=== PATIENT | male | born 1985 | race Hispanic/Latino ===

== ENCOUNTER 2021-01-18 16:30 | Emergency (ER) | payer SELFPAY ==
[2021-01-18 16:31] VITALS: BP 136/87; PULSE 130; RESP 24; TEMP 36.8; O2SAT 97; BMI 23.3
[2021-01-18 16:57] LABS: Absolute Lymphocyte Count 2.19 X10^3/uL (0.83-4.51); Absolute Neutrophil Count 3.6 X10^3/uL (2.0-7.7); Basophil# 0.04 X10^3/uL; Basophil% 0.6 % (0-1); Eosinophil# 0.03 X10^3/uL; Eosinophils% 0.5 % (0-5); Hemoglobin 14.7 g/dL (13.0-16.5); Lymphocyte # 2.19 X10^3/ul (0.83-4.51); Lymphocyte % 34.7 % (19-41); Mean Corp Hgb Conc 33.4 g/dL (32-36); Mean Corpuscular Hgb 29.8 pg (27.0-32.0); Mean Corpuscular Volume 89.2 fL (80-94); Monocyte# 0.41 X10^3/uL; Monocyte% 6.5 % (0-10); NRBC Flagged by Analyzer 0 % (0-5); Neutrophil # 3.58 X10^3/uL (2.7-7.7); Neutrophil % 56.7 % (47-70); Platelet Count 324 K/mm3 (150-450); RBC Distribution Width CV 12.5 % (11.6-14.6); RBC Distribution Width SD 41.1 fl (35.1-43.9); Red Blood Count 4.93 M/mm3 (4.6-6.2); White Blood Count 6.3 K/mm3 (4.4-11.0)
[2021-01-18] MEDS: Morphine 4 MG/ML Syringe IV (16:58)
[2021-01-18] MEDS: Ondansetron 4 MG/2 ML Vial IV (16:58)
[2021-01-18] MEDS: 0.9% Normal Saline 1,000 ML 1000 ML IV (16:58)
[2021-01-18] MEDS: 0.9% Normal Saline 1,000 ML 150 ML IV (17:07)
[2021-01-18 17:15] LABS: AST(SGOT) 64 U/L (15-37); Alanine Aminotransfer ALT/SGPT 138 U/L (16-61); Albumin, Serum 4.6 g/dL (3.2-5.0); Alkaline Phosphatase 127 U/L (45-117); Anion Gap 16 (5-15); BUN 8 mg/dL (7-18); BUN/Creat Ratio 5.9 RATIO (10-20); Bilirubin, Direct 0.09 mg/dL (0.00-0.30); Calcium,Total 9.1 mg/dL (8.5-10.1); Chloride 105 mmol/L (98-107); Creatinine, Serum 1.35 mg/dL (0.70-1.30); EST Glomerular Filtration Rate 63 mL/min (>60); Est Glom Filt Rate - Afr Amer 76 mL/min (>60); Estimated Creatinine Clearance 65.17 ml/min; Globulin 4.2 g/dL (2.2-4.2); Glucose 136 mg/dL (74-106); Lipase 83 U/L (73-393); Protein, Total 8.8 g/dL (6.4-8.2); Sodium Level 140 mmol/L (136-145)
[2021-01-18] MEDS: Potassium Chloride Oral Tablet 20 MEQ 40 MEQ PO (18:24)
--- NOTE | 2021-01-18 18:54 | EDS_ITS ---
HPI History of Present Illness Chief Complaint: Nausea/Vomiting Informant: patient and spouse/S.O. Onset/Context/Timing Onset: Today Current Severity: Moderate Maximum Severity: Moderate Narrative Narrative: Patient presents secondary to nausea and vomiting. He reports drinking too much beer last night and vomiting. He drank quite a bit of coffee this morning and now feels jittery. He does report some tingling in the bilateral extremities distal to his elbows. PFSH PFSH no medical history Home Medications ondansetron 4 mg PO Q8H PRN #10 tab 01/18/21 [Rx Last Taken Unknown] Allergy/AdvReac Type Severity Reaction Status Date / Time No Known Allergies Allergy Verified 01/18/21 16:33 Social History Smoking Status: Never smoker ROS ROS ED Constitutional Constitutional ED: Denies chills or fever(s) Eyes Eyes: Denies change in vision ENT ENT ED: Denies sore throat Cardiovascular Cardiovascular: Denies chest pain Respiratory/Chest Respiratory/Chest: Denies cough or dyspnea Gastrointestinal Gastrointestinal: Reports abdominal pain, nausea and vomiting; Denies diarrhea Genitourinary Genitourinary ED: Denies dysuria Musculoskeletal Musculoskeletal: Denies back pain Integumentary Denies rash Neurologic Neurologic: Reports paresthesias; Denies headache(s) or weakness Psychiatric Psychiatric: Reports anxiety; Denies depression Endocrine Endocrinology: Denies polydipsia or polyuria Allergic/Immunologic Allergic/Immunologic ED: Denies urticaria EXAM Physical Exam Const Vital Signs: 01/18/21 16:31 01/18/21 20:32 01/18/21 21:34 Temperature 98.2 F Temperature Source Temporal Pulse Rate 130 H 110 H Respiratory Rate 24 H 18 19 H Blood Pressure 136/87 H 160/96 H Blood Pressure Mean 103 117 Pulse Ox 97 99 Oxygen Delivery Method Room Air Room Air Positive well nourished and well developed General Appearance ED: well developed HEENT Reports normocephalic and head/scalp atraumatic Eyes PERRL and EOMs intact bilaterally Neck supple Chest Wall inspection of chest normal and palpation of chest normal Resp normal respiratory effort and clear to auscultation bilaterally Cardio regular rhythm Rate: tachycardic GI normal to inspection, nondistended, normoactive bowel sounds and non-tender Palpation: soft Back/Spine no CVA tenderness Extremity normal to inspection Neuro oriented x3 and no sensory deficits noted Sensorium / Orientation: alert Motor Exam: strength 5/5 throughout Psych mental status grossly normal Skin no rashes or lesions noted MDM MDM MDM Narrative Medical decision making narrative: Patient was initially given morphine and Zofran along with IV fluids. This was followed by dose of Toradol. Lab work is obtained. Lab Data Attestation: I reviewed the patient's lab results. Labs: Laboratory Results - last 24 hr 01/18/21 01/18/21 16:50 16:50 WBC 6.3 RBC 4.93 Hgb 14.7 Hct 44.0 MCV 89.2 MCH 29.8 MCHC 33.4 RDW Std Deviation 41.1 RDW Coeff of Kathy 12.5 Plt Count 324 MPV 10.0 Immature Gran % (Auto) 1.000 H Neut % (Auto) 56.7 Lymph % (Auto) 34.7 [place] % (Auto) 6.5 Eos % (Auto) 0.5 Baso % (Auto) 0.6 Absolute Neuts (auto) 3.6 Absolute Lymphs (auto) 2.19 Nucleated RBC % 0 Sodium 140 Potassium 3.0 L Chloride 105 Carbon Dioxide 19.0 L Anion Gap 16 H BUN 8 Creatinine 1.35 H Estim Creat Clear Calc 65.17 Est GFR (MDRD) Af Amer 76 Est GFR (MDRD) Non-Af 63 BUN/Creatinine Ratio 5.9 L Glucose 136 H Calcium 9.1 Total Bilirubin 0.40 Direct Bilirubin 0.09 AST 64 H ALT 138 H Alkaline Phosphatase 127 H Total Protein 8.8 H Albumin 4.6 Globulin 4.2 Lipase 83 Treatment and Re-Evaluation Comments:: On repeat evaluation patient reports still feeling shaky and having tension across his shoulders. He is also complaining of some reflux. He is given a dose of Protonix and fentanyl. At this time patient does feel improved. Potassium is slightly low at 3.0 this was replaced orally. Patient tolerated this without difficulty. Discharge Plan Triage Chief Complaint: Nausea/Vomiting ED Provider: Erica Marina Dx/Rx/DC Orders Clinical Impression: Vomiting, Transaminitis Instructions: ED Vomiting (Adult) Prescriptions: New ondansetron 4 mg tablet,disintegrating 4 mg PO Q8H PRN (Reason: nausea and vomiting) Qty: 10 RF: 0 Stand Alone Forms: ED Work / School Excuse Primary Care Provider: Care Physician,No Primary Referrals: Ying Denise MD [STAFF PHYSICIAN] - As Needed Care Physician,No Primary [Primary Care Provider] - Disposition Disposition: Home, Self Care Discharge Date/Time: 01/18/21 21:35
[2021-01-18] MEDS: Ketorolac 30 MG/ML Syringe IV (19:21)
[2021-01-18 20:32] VITALS: BP 160/96; PULSE 110; RESP 18; O2SAT 99
[2021-01-18] MEDS: fentaNYL 100 MCG/2 ML Ampul 25 MCG IV (20:33)
[2021-01-18 21:34] VITALS: RESP 19
== END 2021-01-18 21:35 | disposition home or self-care (01) ==
PROVIDERS: Emergency Provider Emergency Medicine
DX: R11.2 Nausea with vomiting, unspecified (principal); R74.01 Elevation of levels of liver transaminase levels; R20.2 Paresthesia of skin; R10.9 Unspecified abdominal pain
CPT/HCPCS: 80048; 80076; 83690; 85025; 96361; 96365; 96375; 99283; J7030; A4216; J2405

== ENCOUNTER 2021-01-19 17:19 | Emergency (ER) | payer SELFPAY ==
[2021-01-18 16:31] VITALS: BMI 23.3
[2021-01-19 17:20] VITALS: BP 147/93; PULSE 88; RESP 16; TEMP 37.1; O2SAT 96; BMI 26.9
--- NOTE | 2021-01-19 17:34 | EKG12_ITS ---
Test Reason : GEN ILLNESS Blood Pressure : / mmHG Vent. Rate : 088 BPM Atrial Rate : 088 BPM P-R Int : 134 ms QRS Dur : 100 ms QT Int : 386 ms P-R-T Axes : 065 078 040 degrees QTc Int : 467 ms Normal sinus rhythm Normal ECG Confirmed by FLORENTIN SOLITARIO, RAGINI ([id number]), editor city BETTY SINCLAIR ([id number]) on 01/20/2021 2:23:05 PM Referred By: GALA Confirmed By:RAGINI LERMA MD
--- NOTE | 2021-01-19 17:35 | CT_ITS ---
HISTORY: abdominal pain, nausea EXAMINATION: CT Abdomen And Pelvis W/ Contrast Injection TECHNIQUE: Helically acquired images were obtained of the abdomen and pelvis following IV contrast. A radiation dose optimization technique was used for this scan. IV Contrast dosage and agent: 100mL Isovue-370 Oral contrast: None. COMPARISON: None FINDINGS: LOWER CHEST: Lung bases are clear. No cardiomegaly or pericardial effusion. LIVER: Zone of increased enhancement in segment III of the liver. GALLBLADDER AND BILIARY TREE: No calcified gallstones. No gallbladder distension or wall edema. No intra- or extrahepatic biliary ductal dilation. PANCREAS: No focal cystic or solid mass. SPLEEN: Normal size without focal cystic or solid mass. ADRENAL GLANDS: No nodules. KIDNEYS AND URETERS: Normal renal size and position. No hydronephrosis. PERITONEUM: No ascites or free air. BOWEL: Normal appendix. No stomach or bowel distension. No focal inflammatory bowel wall changes. LYMPH NODES: No enlarged mesenteric or retroperitoneal lymph nodes. VESSELS: Aorta is non-dilated. URINARY BLADDER: Unremarkable. REPRODUCTIVE ORGANS: No pelvic masses. ABDOMINAL WALL: No discrete abdominal or pelvic wall hernia. BONES: No acute or aggressive abnormality. CT/Abdomen/Pelvis W IV Cont ONLY IMPRESSION: No acute findings in the abdomen or pelvis. Hyperenhancing lesion in the segment 3 of the liver, possible DENI versus other hypervascular lesion including neoplasia. Evaluation cannot be completed based on single phase study. Further evaluation by routine multiphasic hepatic CT or MRI is recommended. Individualized dose optimization techniques were used for this CT. at 2010 Reported and signed by: Stephen Diane MD Electronically Signed: Stephen Diane MD at 20:09 EDT Tel , Service support ,
--- NOTE | 2021-01-19 17:36 | EX.ED.DYSGE1 ---
HPI History of Present Illness Chief Complaint: General Illness Detail of Chief Complaint: Pain in left arm and abdominal pain Informant: patient Narrative Narrative: Patient presents to the emergency department with multiple complaints today. He was seen in the emergency department yesterday stating that he had been drinking too much beer the day before and was seen for nausea and vomiting. Patient also had some numbness and tingling in his left arm yesterday. Patient states that he woke up feeling better this morning but then this afternoon started having more pain in his left shoulder that goes down into his left arm. The pain is intermittent. Patient continues to have upper abdominal pain and nausea but no vomiting. He denies fevers. He denies falls or injuries to his neck or back. Describe just minimal neck discomfort. The pain in the left arm is about an 8 out of 10. Patient does have some history of depression and at times feels nervous and anxious. Prior similar symptoms: No PFSH PFSH Home Medications ondansetron 4 mg PO Q8H PRN #10 tab 01/18/21 [Rx Last Taken Unknown] lansoprazole [Prevacid] 30 mg PO DAILY #30 cap 01/19/21 [Rx Last Taken Unknown] ondansetron 4 mg PO Q8H PRN PRN #10 tab 01/19/21 [Rx Last Taken Unknown] Allergy/AdvReac Type Severity Reaction Status Date / Time No Known Allergies Allergy Verified 01/19/21 17:21 Social History Smoking Status: Current some day smoker tobacco type: cigarettes ROS ROS ED Constitutional Constitutional ED: Reports systems reviewed and no addt'l complaints, except as documented; Denies body ache(s), change in weight or chills Eyes Eyes: Denies acute decrease in peripheral vision, change in vision, double vision or loss of vision ENT ENT ED: Reports none; Denies ear pain, lip swelling, loss taste/smell, neck pain, otalgia or sore throat Cardiovascular Cardiovascular: Reports none; Denies abdominal pain, chest pain with activity, leg edema, lightheadedness, palpitations, rapid heart rate or syncope Respiratory/Chest Respiratory/Chest: Reports none; Denies change in mental status, dry cough, dyspnea, hemoptysis, shortness of breath at rest or shortness of breath with exertion Gastrointestinal Gastrointestinal: Reports none, abdominal pain and nausea; Denies change in stool character, diarrhea, hematemesis, hematochezia, melena, rectal bleeding or vomiting Genitourinary Genitourinary ED: Reports none; Denies abdominal discomfort, anuria, dysuria, genital pain or polyuria Musculoskeletal Musculoskeletal: Reports none and other Details: Back pain and left arm pain ; Denies arthralgias, back pain, difficulty walking, extremity pain, muscle weakness or myalgias Integumentary Reports none; Denies abscess or rash Neurologic Neurologic: Reports none; Denies abnormal gait, confusion, focal weakness, frequent falls, headache(s), loss of vision, numbness, paresthesias, radicular pain, vertigo or weakness Psychiatric Psychiatric: Reports systems reviewed and no addt'l complaints, except as documented and none; Denies behavioral changes, confusion, difficulty concentrating, hallucinations, suicidal ideation, tactile hallucinations or visual hallucinations Endocrine Endocrinology: Denies none, cold intolerance, excessive sweating, fatigue or heat intolerance Hematologic/Lymphatic Hematologic/Lymphatic: Reports none; Denies anemia, easy bleeding or easy bruising Allergic/Immunologic Allergic/Immunologic ED: Denies as per HPI, none, lip swelling, mouth swelling, throat swelling, tongue swelling or hives EXAM Physical Exam Const Vital Signs: 01/19/21 17:20 01/19/21 17:54 01/19/21 20:28 Temperature 98.7 F Temperature Source Temporal Pulse Rate 88 78 Respiratory Rate 16 18 Respiratory Effort Short of Breath Respiratory Pattern Normal Blood Pressure 147/93 H 114/84 H Blood Pressure Mean 111 94 Pulse Ox 96 99 Oxygen Delivery Method Room Air Room Air Positive well nourished and well developed General Appearance ED: well developed and NAD HEENT Reports TM's clear and moist mucous membranes normocephalic and atraumatic; Negative for trauma or tenderness Tympanic Membrane ED: Yes TM's clear Eyes PERRL and EOMs intact bilaterally General Eye ED: Negative for pale conjunctiva or scleral icterus Neck no lymphadenopathy, supple and no JVD General: Negative for tenderness Chest Wall inspection of chest normal and palpation of chest normal Chest: Negative for tenderness Resp normal respiratory effort and clear to auscultation bilaterally Effort and Inspection: Negative for respiratory distress or pain with movement Auscultation: Negative for rhonchi, wheezes or diminished lung sounds Cardio regular rate, regular rhythm, S1 normal heart sound, S2 normal heart sound and no murmurs Peripheral Pulses: pulses 2+ throughout GI normal to inspection, nondistended, normoactive bowel sounds, soft to palpation, non-tender, non-distended and no masses Palpation: soft and tender epigastric Back/Spine no CVA tenderness and no thoracic nor lumbar tenderness Back/Spine Narrative: Patient has tenderness palpation over the left trapezius and deltoid that seems to reproduce his pain with palpation. No bony tenderness over the thoracic spine. Extremity normal to inspection General Extremety ED: Negative for edema General Extremity: Negative for edema Neuro oriented x3, CN's II-XII intact bilaterally, no sensory deficits noted and gait normal Sensorium / Orientation: awake, alert, oriented to person, oriented to place and oriented to time Motor Exam: strength 5/5 throughout and strength abnormal Psych mental status grossly normal Skin no rashes or lesions noted and no wounds MDM MDM MDM Narrative Medical decision making narrative: Patient felt improved after treatment with Ativan and Zofran. He states his left arm pain is significantly improved. Patient I suspect likely has some muscle spasm causing his discomfort in his back and shoulder. His lab work is unremarkable and his liver enzyme elevation is actually improved from yesterday. He does have an elevated lactate of 4.5 and etiology is unclear however I suspect it may be related to dehydration partially. CT scan of the abdomen pelvis essentially was unremarkable other than an abnormal enhancing lesion in his liver which they recommended further evaluation with MRI or dedicated multiphase hepatic CT. Patient will be referred to primary care physician for follow-up. Patient will be given a prescription for Zofran and will start on Prevacid as I suspect he may have a alcoholic gastritis. Lab Data Attestation: I reviewed the patient's lab results. Labs: Laboratory Results - last 24 hr 01/19/21 01/19/21 01/19/21 17:45 17:45 17:45 WBC 4.9 RBC 4.71 Hgb 14.2 Hct 42.0 MCV 89.2 MCH 30.1 MCHC 33.8 RDW Std Deviation 41.0 RDW Coeff of Kathy 12.4 Plt Count 295 MPV 9.9 Immature Gran % (Auto) 0.600 Neut % (Auto) 60.6 Lymph % (Auto) 27.9 [place] % (Auto) 9.5 Eos % (Auto) 0.8 Baso % (Auto) 0.6 Absolute Neuts (auto) 3.0 Absolute Lymphs (auto) 1.38 Nucleated RBC % 0 Sodium 137 Potassium 3.4 L Chloride 102 Carbon Dioxide 24.0 Anion Gap 11 BUN 10 Creatinine 1.35 H Estim Creat Clear Calc 65.17 Est GFR (MDRD) Af Amer 76 Est GFR (MDRD) Non-Af 63 BUN/Creatinine Ratio 7.4 L Glucose 117 H Lactic Acid 4.5 H* Calcium 9.6 Total Bilirubin 0.60 AST 55 H ALT 110 H Alkaline Phosphatase 118 H Total Creatine Kinase Troponin I High Sens < 3.0 L Total Protein 8.3 H Albumin 4.3 Globulin 4.0 Albumin/Globulin Ratio 1.1 Lipase 90 01/19/21 17:45 WBC RBC Hgb Hct MCV MCH MCHC RDW Std Deviation RDW Coeff of Kathy Plt Count MPV Immature Gran % (Auto) Neut % (Auto) Lymph % (Auto) [place] % (Auto) Eos % (Auto) Baso % (Auto) Absolute Neuts (auto) Absolute Lymphs (auto) Nucleated RBC % Sodium Potassium Chloride Carbon Dioxide Anion Gap BUN Creatinine Estim Creat Clear Calc Est GFR (MDRD) Af Amer Est GFR (MDRD) Non-Af BUN/Creatinine Ratio Glucose Lactic Acid Calcium Total Bilirubin AST ALT Alkaline Phosphatase Total Creatine Kinase 325 H Troponin I High Sens Total Protein Albumin Globulin Albumin/Globulin Ratio Lipase Radiography Diagnostic Testing: Radiology Impression Abdomen/Pelvis CT 01/19/21 17:35 IMPRESSION: No acute findings in the abdomen or pelvis. Hyperenhancing lesion in the segment 3 of the liver, possible DENI versus other hypervascular lesion including neoplasia. Evaluation cannot be completed based on single phase study. Further evaluation by routine multiphasic hepatic CT or MRI is recommended. Individualized dose optimization techniques were used for this CT. at 2010 Reported and signed by: Stephen Diane MD Electronically Signed: Stephen Diane MD at 20:09 EDT Tel , Service support , Chest X-Ray 01/19/21 18:06 IMPRESSION: No radiographic evidence of acute cardiopulmonary disease. at 1944 Reported and signed by: Stephen Diane MD Electronically Signed: Stephen Diane MD at 19:42 EDT Tel , Service support , EKG Initial EKG: Attestation: I personally reviewed and interpreted this EKG as follows: Comments: Sinus rhythm with a ventricular rate of 88 bpm with no acute I segment changes Discharge Plan Triage Chief Complaint: General Illness ED Provider: Rosemarie Davis Dx/Rx/DC Orders Clinical Impression: Gastritis, Vomiting, Back pain Instructions: ED Back Pain (Acute or Chronic), ED Gastritis (Adult), ED Epigastric Pain Uncertain Cause Prescriptions: New lansoprazole [Prevacid] 30 mg capsule,delayed release(DR/EC) 30 mg PO DAILY Qty: 30 RF: 0 ondansetron [ondansetron] 4 MG tablet 4 mg PO Q8H PRN PRN (Reason: Nausea) Qty: 10 RF: 0 No Action ondansetron 4 mg tablet,disintegrating 4 mg PO Q8H PRN (Reason: nausea and vomiting) Qty: 10 RF: 0 Primary Care Provider: Care Physician,No Primary Referrals: Hola Montalvo MD [STAFF PHYSICIAN] - 3-5 Days Care Physician,No Primary [Primary Care Provider] - Disposition Disposition: Home, Self Care
--- NOTE | 2021-01-19 17:37 | NURSING ---
NO OLD EKGS
[2021-01-19] MEDS: LORazepam 2 MG/ML Syringe 1 MG IV (17:49)
[2021-01-19] MEDS: Ondansetron 4 MG/2 ML Vial IV (17:49)
[2021-01-19] MEDS: 0.9% Normal Saline 1,000 ML 150 ML IV (17:56)
--- NOTE | 2021-01-19 18:06 | RAD_ITS ---
HISTORY: back pain EXAMINATION/TECHNIQUE: XR Chest 1 View: 1 view COMPARISON: Portable upright AP chest x-ray FINDINGS: LINES/DEVICES: None. LUNGS: No consolidation, edema or effusion. No pneumothorax. MEDIASTINUM AND CARDIOVASCULAR STRUCTURES: Cardiac silhouette not enlarged. Central airways and mediastinal contour are unremarkable. BONES AND SOFT TISSUES: No acute bony abnormalities. RAD/Chest 1 View (Portable) IMPRESSION: No radiographic evidence of acute cardiopulmonary disease. at 1946 Reported and signed by: Stephen Diane MD Electronically Signed: Stephen Diane MD at 19:42 EDT Tel , Service support ,
[2021-01-19 18:11] LABS: Absolute Lymphocyte Count 1.38 X10^3/uL (0.83-4.51); Basophil# 0.03 X10^3/uL; Basophil% 0.6 % (0-1); Eosinophil# 0.04 X10^3/uL; Eosinophils% 0.8 % (0-5); Hemoglobin 14.2 g/dL (13.0-16.5); Lymphocyte # 1.38 X10^3/ul (0.83-4.51); Lymphocyte % 27.9 % (19-41); Mean Corp Hgb Conc 33.8 g/dL (32-36); Mean Corpuscular Hgb 30.1 pg (27.0-32.0); Mean Corpuscular Volume 89.2 fL (80-94); Mean Platelet Vol. 9.9 fl (6.2-12.0); Monocyte# 0.47 X10^3/uL; Monocyte% 9.5 % (0-10); NRBC Flagged by Analyzer 0 % (0-5); Neutrophil # 2.99 X10^3/uL (2.7-7.7); Neutrophil % 60.6 % (47-70); Platelet Count 295 K/mm3 (150-450); RBC Distribution Width CV 12.4 % (11.6-14.6); Red Blood Count 4.71 M/mm3 (4.6-6.2); White Blood Count 4.9 K/mm3 (4.4-11.0)
[2021-01-19 18:31] LABS: ALB/GLOB Ratio 1.1 RATIO (0.9-2.4); AST(SGOT) 55 U/L (15-37); Alanine Aminotransfer ALT/SGPT 110 U/L (16-61); Albumin, Serum 4.3 g/dL (3.2-5.0); Alkaline Phosphatase 118 U/L (45-117); Anion Gap 11 (5-15); BUN 10 mg/dL (7-18); BUN/Creat Ratio 7.4 RATIO (10-20); Calcium,Total 9.6 mg/dL (8.5-10.1); Chloride 102 mmol/L (98-107); Creatinine, Serum 1.35 mg/dL (0.70-1.30); EST Glomerular Filtration Rate 63 mL/min (>60); Est Glom Filt Rate - Afr Amer 76 mL/min (>60); Estimated Creatinine Clearance 65.17 ml/min; Glucose 117 mg/dL (74-106); Lipase 90 U/L (73-393); Potassium 3.4 mmol/L (3.5-5.1); Protein, Total 8.3 g/dL (6.4-8.2); Sodium Level 137 mmol/L (136-145); Troponin-I HS < 3.0 pg/mL (3.0-78.5)
[2021-01-19 18:35] LABS: CPK Total, Creatine Kinase 325 U/L (39-308)
[2021-01-19 18:39] LABS: Lactic Acid 4.5 mmol/L (0.4-1.9)
[2021-01-19 20:28] VITALS: BP 114/84; PULSE 78; RESP 18; O2SAT 99
[2021-01-19 21:17] VITALS: BP 127/86; PULSE 70; RESP 20; O2SAT 99
[2021-01-19 22:01] LABS: Reflex Lactate? Y
== END 2021-01-19 21:22 | disposition home or self-care (01) ==
PROVIDERS: Emergency Provider Emergency Medicine
DX: K29.70 Gastritis, unspecified, without bleeding (principal); R11.10 Vomiting, unspecified; M54.9 Dorsalgia, unspecified; R20.2 Paresthesia of skin; F17.210 Nicotine dependence, cigarettes, uncomplicated
CPT/HCPCS: 71045; 74177; 80053; 82550; 83605; 83690; 84484; 85025; 93005; 96361; 96365; 96374; 96375; 99283; J7030; Q9967; A4216; J2405; J3490

== ENCOUNTER 2021-08-28 13:37 | Emergency (ER) | payer SELFPAY ==
[2021-08-28 13:38] VITALS: BP 139/100; PULSE 98; RESP 16; TEMP 36.6; O2SAT 98; BMI 29.1
--- NOTE | 2021-08-28 13:45 | CT_ITS ---
INDICATION: RLQ pain EXAMINATION: CT ABDOMEN AND PELVIS with CONTRAST - CT Abdomen And Pelvis W/ Contrast Injection TECHNIQUE: Multiple axial images were obtained of the abdomen following administration of IV contrast. Planar reconstructions obtained. A radiation dose optimization technique was used for this scan. IV Contrast dosage and agent: 100 mL Isovue 300 Oral contrast: None. Radiation Dose (provided by facility) CTDIvol (11.21 ) mGy, DLP ( 829.27) mGy-cm COMPARISON: 01/19/2021 FINDINGS: LOWER THORAX: Lungs are clear. HEPATOBILIARY: Liver: The liver is homogeneous and shows no evidence of focal lesion however diffuse fatty infiltration is noted.. Gallbladder: Gallbladder is partially contracted, there is gallbladder wall enhancement without radiodense calcifications or pericholecystic fluid. No ductal dilatation noted. Pancreas: Pancreas is normal size configuration and density. No mass is noted. Spleen: The spleen is homogeneous and normal in size. . BOWEL: Stomach: The stomach is normal in size configuration, no evidence of focal masses, abnormal calcifications. No hiatal hernia noted. Bowel: 1. Small bowel segments have normal configuration, no small bowel obstruction noted. 2. Large bowel segments have normal configuration, scattered diverticula are present. There is focal area of significant wall thickening and pericolic soft tissue stranding involving the ascending colon approaching the hepatic flexure, associated diverticula are present, and findings consistent with focal area of diverticulitis. Given the short segment, infiltrating mass is not excluded, and short-term follow-up to assure complete resolution recommended. No evidence of abscess or free air. 3. There are scattered lymph nodes noted within the mesocolon. None reach size criteria for adenopathy however. 4. Normal appearance of the appendix. Appendix: The visualized appendix has normal appearance.: GENITOURINARY: Adrenals: Both adrenal glands are normal in size. Kidneys: Kidneys appear symmetric in size. No calcifications are seen in the collecting system. There is no hydronephrosis or surrounding fluid. Bladder: Normal Pelvic organs: The visualized pelvic organs are normal in size and configuration. No masses or adenopathy noted. RETROPERITONEUM: There is normal appearance of the abdominal aorta and inferior vena cava. LYMPH NODES: No evidence of retroperitoneal or para-aortic masses fluid collections or adenopathy. PERITONEAL CAVITY: No ascites noted ANTERIOR ABDOMINAL WALL: Normal, no hernia identified. BONES AND SOFT TISSUES: The skeleton shows no evidence for fractures or destructive lesions. OTHER: None CT/Abdomen/Pelvis W IV Cont ONLY IMPRESSION: 1. Short segment wall thickening and edema involving the ascending colon approaching the hepatic flexure, diverticula are present in this area and significant pericolic soft tissue stranding is present. Findings consistent with focal area of diverticulitis. An underlying infiltrating mass lesion is however not excluded given the short segment, short-term follow-up is recommended to assure complete resolution. Endoscopic evaluation also a consideration. Reactive adenopathy is noted in the mesocolon. 2. No small bowel obstruction. No abscess or free air. 3. Contracted gallbladder, no radiodense calcifications noted. 4. Fatty infiltration liver without hepatic masses. 5. No evidence of renal calcifications or obstructive uropathy. Electronically Signed: Johnathan Tejeda MD at 15:02 EST ,
--- NOTE | 2021-08-28 13:50 | EDS_ITS ---
HPI HPI - GI History of Present Illness Chief Complaint: Abd Pain Detail of Chief Complaint: Right lower quadrant pain Informant: patient Abdominal Pain/Flank Pain Onset: Yesterday Context: Gradual Onset Timing: Continuous Location: RLQ Current Severity: Moderate Maximum Severity: Moderate Nausea/Vomiting/Emesis GI Symptom: Positive for Nausea; Negative for Vomiting Diarrhea/Melena/Hematochezia GI Symptom: Negative for Diarrhea, Melena and Hematochezia Associated Symptoms Associated Symptoms: Negative for Dysuria, Frequency, Hematuria and Urgency Narrative Narrative: 28-year-old male no severe past medical history other than reflux. No prior surgeries. Patient states that yesterday around 2:00 in the afternoon he started developing right lower quadrant abdominal pain with associated nausea no vomiting. Denies any dysuria. He thought he had a fever yesterday but none today. He denies any appetite today. He has never had any abdominal surgery denies any abdominal trauma. Prior similar symptoms: No Recent Illness/Hospitalization: No PFSH PFSH Medical History (Updated 08/28/21 @ 15:[address] Jermaine Márquez MD) GERD (gastroesophageal reflux disease) Medical History no medical history no medical history Home Medications ondansetron 4 mg PO Q8H PRN #10 tab 01/18/21 [Rx Last Taken Unknown] lansoprazole [Prevacid] 30 mg PO DAILY #30 cap 01/19/21 [Rx Last Taken Unknown] ondansetron 4 mg PO Q8H PRN PRN #10 tab 01/19/21 [Rx Last Taken Unknown] ciprofloxacin HCl 500 mg PO BID 14 Days #28 tab 08/28/21 [Rx Last Taken Unknown] hydrocodone-acetaminophen 1 tab PO Q4H PRN 5 Days #20 tab 08/28/21 [Rx Last Taken Unknown] metronidazole 500 mg PO Q8H 14 Days #42 tab 08/28/21 [Rx Last Taken Unknown] Allergy/AdvReac Type Severity Reaction Status Date / Time No Known Allergies Allergy Verified 08/28/21 13:40 Surgical History no surgical history no surgical history Social History Smoking Status: Current some day smoker tobacco type: cigarettes ROS ROS ED ROS Narrative Abdominal pain and nausea. Review of Systems ROS Unobtainable: Denies due to encephalopathy Constitutional Constitutional ED: Reports fever(s) and subjective ENT ENT ED: Denies ear pain Cardiovascular Cardiovascular: Denies chest pain or palpitations Respiratory/Chest Respiratory/Chest: Denies cough, dyspnea or sputum Gastrointestinal Gastrointestinal: Reports abdominal pain and nausea; Denies diarrhea or vomiting Genitourinary Genitourinary ED: Denies dysuria Musculoskeletal Musculoskeletal: Denies myalgias Integumentary Denies rash Neurologic Neurologic: Denies headache(s) Psychiatric Psychiatric: Denies depression Endocrine Endocrinology: Denies polyuria Hematologic/Lymphatic Hematologic/Lymphatic: Denies easy bruising Allergic/Immunologic Allergic/Immunologic ED: Denies urticaria EXAM Physical Exam Narrative Exam Narrative: 28-year-old male vital signs stable afebrile. H EENT exam unremarkable. Moist refinements. Lungs are clear. Heart regular rhythm. Abdomen soft nondistended normal bowel sounds. Is exquisite right lower quadrant tenderness only. No hernia or mass. No distention. Concern for appen dicitis. Right upper quadrant is unremarkable. Back nontender. Moving all 4 extremities. Nontender no edema. Neurologically awake and alert. Const Vital Signs: 08/28/21 13:38 Temperature 97.8 F Temperature Source Temporal Pulse Rate 98 Respiratory Rate 16 Blood Pressure 139/100 H Blood Pressure Mean 113 Pulse Ox 98 Oxygen Delivery Method Room Air Positive well nourished and well developed; Negative for obese, contractures or unkempt General Appearance ED: well developed and NAD; Negative for unkempt, contractures or pallor Nutritional Appearance: Negative for obese HEENT Reports moist mucous membranes normocephalic and atraumatic Eyes PERRL and EOMs intact bilaterally General Eye ED: Negative for pale conjunctiva or scleral icterus Neck no lymphadenopathy, supple and no JVD General: Negative for tenderness Resp normal respiratory effort and clear to auscultation bilaterally Auscultation: Negative for rales, rhonchi or wheezes Cardio regular rate, regular rhythm, S1 normal heart sound, S2 normal heart sound and no murmurs GI non-distended and no masses; Negative for non-tender Inspection: Negative for abdominal distention Auscultation: normoactive bowel sounds; Negative for hyperactive bowel sounds or hypoactive bowel sounds Palpation: soft, tender, guarding and rebound tenderness present; Negative for rigid Back/Spine no CVA tenderness General Back: Negative for CVA tenderness Cervical Spine: Negative for cervical spine tenderness Thoracic Spine / Upper Back: Negative for thoracic spinal tenderness Extremity full ROM General Extremety ED: Negative for edema or tenderness General Extremity: Negative for edema Neuro moves all extremities Sensorium / Orientation: alert, oriented to person, oriented to place and oriented to time; Negative for orientation impaired, confused or lethargic Motor Exam: strength 5/5 throughout Psych mental status grossly normal and thought process normal Appearance: Negative for unkempt Mood & Affect: Negative for depressed or tearful Skin no wounds General Skin Exam: Negative for jaundice or pallor Lesions: no lesions Rashes: no rashes MDM MDM MDM Narrative Medical decision making narrative: 36-year-old male with right lower quadrant abdominal pain. Very concerning for possible appendicitis. CAT scan and labs are pending. To be treated with IV morphine and Zofran for pain and nausea. Review exam patient is doing well at 3:10 PM. Pain is much improved after the IV medication. He had negative stress test test results. Given his afebrile, is nontoxic-appearing and his pain is much improved be discharged home with outpatient follow-up. He will be started on Cipro and Flagyl. [place] for pain. And outpatient follow-up. Return if feeling worse. Lab Data Attestation: I reviewed the patient's lab results. Lab results narrative: CBC shows a slightly elevated white count 9.3. H&H of 13 and 41. Normal platelets. Electrolytes unremarkable gap of 4. Normal BUN and creatinine. Glucose 104. Liver enzymes unremarkable other than AST of 71 ALT of 104. Lipase normal at 108. Urinalysis is negative. CAT scan appears to be acute right colonic inflammation consistent with right-sided diverticulitis. According the radiologist the appendix is seen and appears normal. There is no peripheral abscess. Labs: Laboratory Results - last 24 hr 08/28/21 08/28/21 08/28/21 13:48 13:48 14:30 WBC 11.3 H RBC 4.64 Hgb 13.8 Hct 41.6 MCV 89.7 MCH 29.7 MCHC 33.2 RDW Std Deviation 40.2 RDW Coeff of Kathy 12.3 Plt Count 279 MPV 9.7 Immature Gran % (Auto) 0.500 Neut % (Auto) 72.2 H Lymph % (Auto) 17.7 L [place] % (Auto) 8.8 Eos % (Auto) 0.6 Baso % (Auto) 0.2 Absolute Neuts (auto) 8.1 H Absolute Lymphs (auto) 1.99 Nucleated RBC % 0 Sodium 137 Potassium 3.8 Chloride 106 Carbon Dioxide 27.0 Anion Gap 4 L BUN 12 Creatinine 1.08 Estim Creat Clear Calc 77.65 Est GFR (MDRD) Af Amer 98 Est GFR (MDRD) Non-Af 81 BUN/Creatinine Ratio 11.1 Glucose 104 Calcium 9.0 Total Bilirubin 0.80 AST 71 H ALT 104 H Alkaline Phosphatase 99 Total Protein 8.2 Albumin 3.6 Globulin 4.6 H Albumin/Globulin Ratio 0.8 L Lipase 108 Urine Color Yellow Urine Clarity Sl. Cloudy Urine pH 7.0 Ur Specific [place] 1.005 Urine Protein 15 H Urine Glucose (UA) Normal Urine Ketones Negative Urine Occult Blood Negative Urine Nitrite Negative Urine Bilirubin Negative Urine Urobilinogen Normal Ur Leukocyte Esterase Negative Urine RBC 0 SEEN Urine WBC 0 SEEN Ur Squamous Epith Cells 0 SEEN Amorphous Sediment 1+ Urine Bacteria RARE Urine Mucus 0 SEEN Discharge Plan Triage Chief Complaint: Abd Pain ED Provider: Jermaine Márquez Dx/Rx/DC Orders Clinical Impression: Diverticulitis Instructions: ED Diverticulitis Prescriptions: New hydrocodone-acetaminophen 5-325 mg tablet 1 tab PO Q4H PRN (Reason: pain) 5 Days Qty: 20 RF: 0 ciprofloxacin HCl 500 mg tablet 500 mg PO BID 14 Days Qty: 28 RF: 0 metronidazole 500 mg tablet 500 mg PO Q8H 14 Days Qty: 42 RF: 0 No Action ondansetron 4 mg tablet,disintegrating 4 mg PO Q8H PRN (Reason: nausea and vomiting) Qty: 10 RF: 0 lansoprazole [Prevacid] 30 mg capsule,delayed release(DR/EC) 30 mg PO DAILY Qty: 30 RF: 0 ondansetron [ondansetron] 4 MG tablet 4 mg PO Q8H PRN PRN (Reason: Nausea) Qty: 10 RF: 0 Primary Care Provider: Care Physician,No Primary Referrals: Aadn Jamil MD [STAFF PHYSICIAN] - 3-5 Days Care Physician,No Primary [Primary Care Provider] - Activity Restrictions/Additional Instructions: Plenty of fluids and rest. You have right-sided diverticulitis which is inflammation and infection of your colon on the right. This will be treated with the antibiotics Cipro 1 pill twice a day for 14 days. And the second antibiotic Flagyl 1 pill 3 times a day for 14 days. You have also been put on the pain medication [place] to help control your pain.. Plenty of fluids. And fiber to prevent constipation. You may also use Motrin for your pain. Follow-up with your local primary care physician to ensure you are improving. Return to the emergency department if you are feeling a lot worse with increasing pain, fever or not improving. Print Language: Azeri Disposition Disposition: Home, Self Care
[2021-08-28 13:55] LABS: Hematocrit 41.6 % (40-54); Hemoglobin 13.8 g/dL (13.0-16.5); Mean Corp Hgb Conc 33.2 g/dL (32-36); Mean Corpuscular Hgb 29.7 pg (27.0-32.0); Mean Corpuscular Volume 89.7 fL (80-94); Platelet Count 279 K/mm3 (150-450); RBC Distribution Width CV 12.3 % (11.6-14.6); RBC Distribution Width SD 40.2 fl (35.1-43.9); Red Blood Count 4.64 M/mm3 (4.6-6.2); White Blood Count 11.3 K/mm3 (4.4-11.0)
[2021-08-28 13:56] LABS: Absolute Lymphocyte Count 1.99 X10^3/uL (0.83-4.51); Absolute Neutrophil Count 8.1 X10^3/uL (2.0-7.7); Basophil# 0.02 X10^3/uL; Basophil% 0.2 % (0-1); Eosinophil# 0.07 X10^3/uL; Eosinophils% 0.6 % (0-5); Lymphocyte # 1.99 X10^3/ul (0.83-4.51); Lymphocyte % 17.7 % (19-41); Mean Platelet Vol. 9.7 fl (6.2-12.0); Monocyte# 0.99 X10^3/uL; Monocyte% 8.8 % (0-10); NRBC Flagged by Analyzer 0 % (0-5); Neutrophil # 8.14 X10^3/uL (2.7-7.7); Neutrophil % 72.2 % (47-70)
[2021-08-28] MEDS: morphine 8 MG/ML Syringe IV (14:00)
[2021-08-28] MEDS: 0.9% Normal Saline 1,000 ML 125 ML IV (14:00)
[2021-08-28] MEDS: Ondansetron 4 MG/2 ML Vial IV (14:00)
[2021-08-28 14:11] LABS: ALB/GLOB Ratio 0.8 RATIO (0.9-2.4); AST(SGOT) 71 U/L (15-37); Alanine Aminotransfer ALT/SGPT 104 U/L (16-61); Albumin, Serum 3.6 g/dL (3.2-5.0); Alkaline Phosphatase 99 U/L (45-117); Anion Gap 4 (5-15); BUN 12 mg/dL (7-18); BUN/Creat Ratio 11.1 RATIO (10-20); Chloride 106 mmol/L (98-107); Creatinine, Serum 1.08 mg/dL (0.70-1.30); EST Glomerular Filtration Rate 81 mL/min (>60); Est Glom Filt Rate - Afr Amer 98 mL/min (>60); Estimated Creatinine Clearance 77.65 ml/min; Globulin 4.6 g/dL (2.2-4.2); Glucose 104 mg/dL (74-106); Lipase 108 U/L (73-393); Potassium 3.8 mmol/L (3.5-5.1); Protein, Total 8.2 g/dL (6.4-8.2); Sodium Level 137 mmol/L (136-145)
[2021-08-28 14:33] LABS: Mucous, Urine 0 SEEN /hpf (<or=2+); Red Blood Cells-Urine 0 SEEN /hpf (0-5); Squamous Epithelial Cells - UA 0 SEEN /hpf (0-5); White Blood Cells 0 SEEN /hpf (0-5)
[2021-08-28 14:35] LABS: Color, Urine Yellow (Yellow); Glucose, Dipstick Normal (Normal); Ketone-Dipstick Negative (Negative); Leukocyte Esterase-Dipstick Negative /ul (Negative); Nitrite-Dipstick Negative (Negative); Occult Blood-Urine Negative /ul (Negative); Protein-Dipstick 15 mg/dl (Negative); Specific Gravity, Urine 1.005 (1.002-1.030); Urine Bilirubin Dipstick Negative (Negative); Urine Clarity Sl. Cloudy (Clear); Urine Urobilinogen Normal (Normal)
[2021-08-28 14:42] LABS: Amorphous Sediment 1+; Bacteria RARE /hpf (None Seen)
[2021-08-28] MEDS: Ciprofloxacin 500 MG Tablet PO (15:28)
[2021-08-28] MEDS: Morphine 4 MG/ML Syringe IV (15:28)
[2021-08-28] MEDS: metroNIDAZOLE 500 MG Tablet PO (15:28)
[2021-08-28 15:42] VITALS: BP 116/58; PULSE 72; RESP 16; O2SAT 99
== END 2021-08-28 15:45 | disposition home or self-care (01) ==
PROVIDERS: Emergency Provider Emergency Medicine; Visit Provider Emergency Medicine
DX: K57.32 Diverticulitis of large intestine without perforation or abscess without bleeding (principal); K21.9 Gastro-esophageal reflux disease without esophagitis; F17.210 Nicotine dependence, cigarettes, uncomplicated
CPT/HCPCS: 74177; 80053; 81001; 83690; 85025; 96361; 96374; 96375; 96376; 99283; J7030; Q9967; A4216; J2405

== ENCOUNTER 2021-10-29 08:48 | Day surgery (SDC) | payer SELFPAY ==
[2021-10-29] VITALS (8 sets, daily range): BP systolic 95–123; BP diastolic 60–76; PULSE 67–79; RESP 16–18; TEMP 35.8–37; O2SAT 97–100; BMI 28.3
--- NOTE | 2021-10-29 09:24 | HP.PCM_ITS ---
History and Physical Date of Admission: 10/29/21 Intake Visit Reasons: DIVERTICULITIS Allergies No Known Allergies Allergy (Verified 09/27/21 15:06) [facility] Medical History (Updated 09/28/21 @ 09:06 by Amarilys OLMSTEAD PA-C) GERD (gastroesophageal reflux disease) Social History (Updated 09/27/21 @ 15:05 by Tiffany Monday) Smoking Status: Current some day smoker tobacco type: cigarettes alcohol intake: current substance use type: does not use HPI HPI HPI: BETHANY PEREZ, is a 36 M who presents to the office today for diverticu litis. Patient is mostly Indian speaking with some citizen of [place]. Patient stated he had right-sided abdominal pain after eating pork rinds. He noted the following day the pain became worse. He presented to the [place] ED on 08/28. A CT scan of the abdomen/pelvis was obtained and demonstrated the following: IMPRESSION: 1. Short segment wall thickening and edema involving the ascending colon approaching the hepatic flexure, diverticula are present in this area and significant pericolic soft tissue stranding is present. Findings consistent with focal area of diverticulitis. An underlying infiltrating mass lesion is however not excluded given the short segment, short-term follow-up is recommended to assure complete resolution. Endoscopic evaluation also a consideration. Reactive adenopathy is noted in the mesocolon. 2. No small bowel obstruction. No abscess or free air. 3. Contracted gallbladder, no radiodense calcifications noted. 4. Fatty infiltration liver without hepatic masses. 5. No evidence of renal calcifications or obstructive uropathy. Patient noted nausea, headache and acid reflux. He denied fever, vomiting. He noted having constipation. He was given Cipro and Flagyl x 14 days. He was also given narcotic pain medication as needed for pain. He continues to have constipation and a feeling of being bloated. He also notes minimal amount of blood within the stool after his bowel movement occurs. He notes having slight discomfort inferior to the umbilicus. He denies having abdominal surgeries. He denies family history of colon cancer or diverticulitis. He stated approximately 12 years ago he had a colonoscopy for constipation. He stated no cause was found. He notes worse pain with milk and beer. He denies previous cardiac history and pulmonary history. He denies previous complications with anesthesia. He denies previously having any episodes of diverticulitis. He did follow-up with his family doctor who is recommending a colonoscopy and upper scope for GERD. He currently takes omeprazole as needed for reflux disease. ROS General General: No weight change, appetite, fatigue, colon cancer, breast cancer or weakness HEENT HEENT: No difficulty swallowing, eye injury, eye surgery, swollen glands or hoarseness Endo Endocrine: No thyroid disease, diabetes mellitus, thyroid cancer, Hair loss, heat intolerance or cold intolerance Skin Skin: No rash or changing moles Musc Musculoskeletal: Yes back problems; No arthritis, rheumatoid arthritis, gout or joint pain Cardio Cardiovascular: No murmur, pacemaker, heart disease, atrial fibrillation, high blood pressure, heart attack, heart stent, palpitations, shortness of breat with exertion or chest pain Psych Psychiatric: No depression, anxiety or hearing voices Resp Respiratory: No shortness of breath, Yes sleep apnea, No cough, No COPD, No asthma, No emphysema and No wheezing Gastro Gastrointestinal: Yes abdominal pain, No nausea or vomiting, No diarrhea, Yes constipation, No blood in stool, Yes acid reflux, No hemorrhoids, No ulcers, No gallbladder problem and No black,tarry stools Ozzy Hematologic: No blood thinners, No blood disorders, No bleeding, No anemia and No blood clots Neuro Neurologic: No system reviewed and no additional complaints, except as documented, No as per HPI, No abnormal gait, No abnormal hearing, No abnormal movements, No abnormal speech, No behavioral changes, No burning sensations, No confusion, No convulsions, No disequilibrium, No dizziness, No localized weakness, No frequent falls, No headache(s), No lack of coordination, No loss of vision, No memory loss, No numbness, No other visual disturbances, No radicular pain, No restless legs, No sensory deficit, No syncope, No tingling, No tremor(s), No weakness and No other Exam Const General: cooperative, healthy appearing, comfortable and no acute distress [facility] Head: normal to inspection Eyes General: appearance normal, both eyes and all related structures Neck Neck: normal visual inspection Neck mass: No Resp Effort & Inspection: normal respiratory effort Auscultation: clear to auscultation bilaterally Cardio Rate: regular rate Rhythm: regular rhythm GI Inspection: normal to inspection and distended Auscultation: normal bowel sounds Musc Cervical Spine: normal cervical lordosis Skin General: no rashes or lesions noted Neuro General: no focal motor deficits and CN's II-XI intact bilaterally Extrem General: normal to inspection Psych Appearance: grossly normal Affect: normal affect Assessment and Plan Assessment and Plan (1) Abdominal pain: Status: Acute Qualifiers: Abdominal location: lower abdomen, unspecified Qualified Code(s): R10.30 - Lower abdominal pain, unspecified Orders: Orders: Colonoscopy Today Plan - Amarilys OLMSTEAD PA-C: Patient is a 36 y/o M, who was recently diagnosed with acute ascending diverticulitis. He has completed his entire course of antibiotics. He notes the pain has resolved however notes discomfort in the lower abdomen. He is now a month from his episode of diverticulitis. I am recommending a colonoscopy with possible biopsies performed by Dr. Hernandez. Patient also has a history of constipation, in which I would recommend a two day bowel prep to included magnesium citrate on day #1 of clears and Miralax on day #2. I have also recommended the patient start Miralax daily now. I am recommending 1 tablespoon in the morning. I have explained the colonoscopy procedure details, risks and benefits to the patient. We have provided the patient bowel prep instructions in Indian, as he is not able to read Serbian. Patient has had the opportunity to ask and have questions answered. Patient verbally understands and agrees with the plan. (2) GERD (gastroesophageal reflux disease): Status: Acute Qualifiers: Esophagitis presence: esophagitis presence not specified Qualified Code(s): K21.9 - Gastro-esophageal reflux disease without esophagitis Orders: Orders: EGD Today Plan - Amarilys OLMSTEAD PA-C: Patient is also noting reflux symptoms multiple times per week. He was recently started on omeprazole by his primary care physician. He notes he only takes this as needed. He has never had an upper scope previously. I am proposing for Dr. Hernandez to perform an upper scope at the time of his colonoscopy. Procedure details, risks and benefits have been explained. Patient has had the opportunity to ask and have questions answered. Patient verbally understands and agrees with the plan. I have encouraged him to take the omeprazole daily for better symptom control. Thank you for allowing us to participate in this patient's care. (3) Diverticulitis: Orders: Orders: Colonoscopy Today Coding Level of Care Code 05534 Exam Problem Focused Diagnoses Abdominal pain R10.30 Abdominal location: lower abdomen, unspecified GERD (gastroesophageal reflux disease) K21.9 Esophagitis presence: esophagitis presence not specified Diverticulitis K57.92 I have re-examined the patient. There are no clinical changes since date of exam. Chester Hernandez M.D., F.A.C.S.
[2021-10-29] MEDS: Lactated Ringers 1,000 ML 15 ML IV (09:33)
--- NOTE | 2021-10-29 10:15 | IMM_PTH ---
PATIENT: BETHANY PEERZ LOC: EN U#:[id number] AGE/SX: 36/M ROOM: RE10/29/[address]: Dr. Chester Hernandez MD : 1985 BED: DIS: 10/29/2021 SPEC #: [id number] RECD: 10/29/21 12:24 STATUS: TAMIKO REAmanda #: [id number] AUBRIE: 10/29/21 10:[address]: Chester Hernandez DEPT: IMMUNOHISTOCHEMISTRY RECD BY: Saima Funez ENTERED: 10/29/21 12:25 SP TYPE: IMMUNO OTHR DR: No Primary Care Phys Tissues: B - Stomach, NOS Procedures: H Pylori (initial) PHYSICIAN & INSTITUTION [place] [address] SPECIMEN INFORMATION: Tissue Source: B ? Antrum biopsy Clinical Info: Abdominal pain, GERD, diverticulitis Specimen Number: [id number] CPT code: 92133 METHODOLOGY: Deparaffinized sections of prefer/formalin-fixed tissue or PAP/DQ stained slides are incubated with monoclonal/polyclonal antibodies/oligonucleotide probes. Localization is made via biotin free immunoperoxidase method. Appropriate controls are performed and reacted as expected. Results on target cell population are indicated in the following table: RESULTS: ANTIBODY / CLONE RESULT Block B H Pylori (polyclonal) negative These tests were developed and their performance characteristics determined by [facility]. They may not have been cleared or approved by the U.S. Food and Drug Administration. The FDA has determined that such clearance or approval is not necessary. The above immunohistochemical/dualISH markers are ordered and reviewed by the Pathologist. INTERPRETATION: B. Antrum biopsy: Negative for Helicobacter pylori organisms. AM:mary 11/02/2021
--- NOTE | 2021-10-29 10:15 | EGD_PTH ---
PATIENT: BETHANY PEREZ LOC: EN U#:[id number] AGE/SX: 36/M ROOM: RE10/29/[address]: Dr. Chester Hernandez MD : 1985 BED: DIS: 10/29/2021 SPEC #: [id number] RECD: 10/29/21 11:46 STATUS: TAMIKO REAmanda #: [id number] AUBRIE: 10/29/21 10:[address]: Chester Hernandez DEPT: SURGICAL PATHOLOGY RECD BY: Cassie Razo ENTERED: 10/29/21 12:15 SP TYPE: EGD BIOPSY OTHR DR: No Primary Care Phys Tissues: A - Duodenum, NOS B - Gastric mucous membrane C - Esophagus, NOS D - Esophagus, NOS E - Ascending colon Procedures: Special Stain Group II Surgery Specimen Level IV Alcian Blue/PAS (control) HEADER OPERATION: Colonoscopy, EGD with biopsy ([facility]) PRE-OP DIAGNOSIS: Abdominal pain, GERD, diverticulitis TISSUE SUBMITTED: A ? Duodenum biopsy, B ? Antrum biopsy, C ? Distal esophagus biopsy, D ? Mid esophagus biopsy, E ? Ascending colon biopsy MICROSCOPIC DIAGNOSIS A. 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 B. Gastric antrum, biopsy: Mild chronic gastritis. See comment. C. Distal esophagus, biopsy: Fragment of squamous mucosa with no pathologic change. No evidence of goblet cell metaplasia. See comment. D. Mid esophagus, biopsy: No pathologic change. E. Ascending colon, biopsy: No pathologic change. AM:mary 11/01/2021 COMMENT B. The results of immunohistochemistry for Helicobacter pylori will be reported separately ([id number]). C. Alcian blue/PAS stain with matched control supports the above diagnosis. MICROSCOPIC DESCRIPTION Slides are reviewed. GROSS DESCRIPTION A - Received in fixative is one container labeled with the patient's name and designated duodenum biopsy. The specimen consists of two irregular fragments of light messer soft tissue that in aggregate measure 0.6 x 0.3 x 0.1 cm. The specimen is totally submitted in one cassette. B - Received in fixative is one container labeled with the patient's name and designated antrum biopsy. The specimen consists of one irregular fragment of light messer soft tissue that measures 0.5 x 0.2 x 0.1 cm. The specimen is totally submitted in one cassette. C - Received in fixative is one container labeled with the patient's name and designated distal esophagus biopsy. The specimen consists of one irregular fragment of light messer soft tissue that measures 0.6 x 0.4 x 0.1 cm. The specimen is totally submitted in one cassette. D - Received in fixative is one container labeled with the patient's name and designated mid esophagus biopsy. The specimen consists of one irregular fragment of light messer soft tissue that measures 0.5 x 0.2 x 0.1 cm. The specimen is totally submitted in one cassette. E - Received in fixative is one container labeled with the patient's name and designated ascending colon biopsy. The specimen consists of two irregular fragments of light messer soft tissue that in aggregate measure 0.5 x 0.3 x 0.1 cm. The specimen is totally submitted in one cassette. / SJ:rg 10/29/2021 TC:3 CPT: 76786 x5, 12169
--- NOTE | 2021-10-29 11:34 | OP.EGD_ITS ---
Patient Name: Preet Fernandez Procedure Date: 10/29/2021 10:53 AM Date of : 1985 Age: 36 Procedure: Upper GI endoscopy Indications: Dysphagia Providers: Chester Hernandez MD Medicines: See the Anesthesia note for documentation of the administered medications Complications: No immediate complications. Procedure: Pre-Anesthesia Assessment: - Prior to the procedure, a History and Physical was performed, and patient medications and allergies were reviewed. The patient's tolerance of previous anesthesia was also reviewed. The risks and benefits of the procedure and the sedation options and risks were discussed with the patient. All questions were answered, and informed consent was obtained. Prior Anticoagulants: The patient has taken no previous anticoagulant or antiplatelet agents. ASA Grade Assessment: II - A patient with mild systemic disease. After reviewing the risks and benefits, the patient was deemed in satisfactory condition to undergo the procedure. After obtaining informed consent, the endoscope was passed under direct vision. Throughout the procedure, the patient's blood pressure, pulse, and oxygen saturations were monitored continuously. The gastroscope was introduced through the mouth, and advanced to the second part of duodenum. The upper GI endoscopy was accomplished without difficulty. The patient tolerated the procedure well. Scope In: 11:07:53 AM Scope Out: 11:13:47 AM Total Procedure Duration Time 0 hours 5 minutes 54 seconds Findings: Esophagitis with no bleeding was found 37 cm from the incisors. Biopsies were taken with a cold forceps for histology. The middle third of the esophagus was normal. Biopsies were taken with a cold forceps for histology. A 1 cm hiatal hernia was present. Diffuse mildly erythematous mucosa without bleeding was found in the gastric antrum. Biopsies were taken with a cold forceps for histology. The examined duodenum was normal. Biopsies were taken with a cold forceps for histology. Impression: - Reflux esophagitis. Biopsied. - Normal middle third of esophagus. Biopsied. - 1 cm hiatal hernia. - Erythematous mucosa in the antrum. Biopsied. - Normal examined duodenum. Biopsied. Recommendation: - Discharge patient to home. - Resume previous diet. - Continue present medications. - Telephone my office for pathology results in 1 week. Procedure Code(s): --- Professional --- 00966, Esophagogastroduodenoscopy, flexible, transoral; with biopsy, single or multiple Diagnosis Code(s): --- Professional --- K21.0, Gastro-esophageal reflux disease with esophagitis K44.9, Diaphragmatic hernia without obstruction or gangrene K31.89, Other diseases of stomach and duodenum R13.10, Dysphagia, unspecified CPT copyright 2017 [employer] [place] [employer]. All rights reserved. The codes documented in this report are preliminary and upon fresh meat grader review may be revised to meet current compliance requirements. Chester Hernandez MD 10/29/2021 11:34:14 AM This report has been signed electronically. Number of Addenda: 0 Note Initiated On: 10/29/2021 10:53 AM
--- NOTE | 2021-10-29 11:34 | OP.CCLET_ITS ---
10/29/2021 No Primary Care Physician Re : Upper GI endoscopy procedure for Peret Fernandez Dear Care Physician This procedure was performed on Friday, October 29, 2021. My impressions and recommendations are as follows: Impressions : - Reflux esophagitis. Biopsied. - Normal middle third of esophagus. Biopsied. - 1 cm hiatal hernia. - Erythematous mucosa in the antrum. Biopsied. - Normal examined duodenum. Biopsied. Recommendations : - Discharge patient to home. - Resume previous diet. - Continue present medications. - Telephone my office for pathology results in 1 week. My findings are described in the full procedure note, which is enclosed. If I can be of further assistance, please feel free to contact me at Doctor phone number(s): Work: . Sincerely, Chester Hernandez MD 10/29/2021 11:34:14 AM This report has been signed electronically.
--- NOTE | 2021-10-29 11:37 | OP.CCLET_ITS ---
10/29/2021 No Primary Care Physician Re : Colonoscopy procedure for Preet Fernandez Dear Care Physician This procedure was performed on Friday, October 29, 2021. My impressions and recommendations are as follows: Impressions : - Abnormal digital rectal exam. - The entire examined colon is normal. Biopsied. Recommendations : - Discharge patient to home. - Resume previous diet. - Continue present medications. - Repeat colonoscopy in 10 years for screening purposes. - Telephone my office for pathology results in 1 week. My findings are described in the full procedure note, which is enclosed. If I can be of further assistance, please feel free to contact me at Doctor phone number(s): Work: . Sincerely, Chester Hernandez MD 10/29/2021 11:37:27 AM This report has been signed electronically.
--- NOTE | 2021-10-29 11:37 | OP.COLON_ITS ---
Patient Name: Preet Fernandez Procedure Date: 10/29/2021 11:18 AM Date of : 1985 Age: 36 Procedure: Colonoscopy Indications: Generalized abdominal pain Providers: Chester Hernandez MD Medicines: See the Anesthesia note for documentation of the administered medications Patient Profile: Last Colonoscopy: none. The patient's first colonoscopy is today. Complications: No immediate complications. Procedure: Pre-Anesthesia Assessment: - Prior to the procedure, a History and Physical was performed, and patient medications and allergies were reviewed. The patient's tolerance of previous anesthesia was also reviewed. The risks and benefits of the procedure and the sedation options and risks were discussed with the patient. All questions were answered, and informed consent was obtained. Prior Anticoagulants: The patient has taken no previous anticoagulant or antiplatelet agents. ASA Grade Assessment: II - A patient with mild systemic disease. After reviewing the risks and benefits, the patient was deemed in satisfactory condition to undergo the procedure. After I obtained informed consent, the scope was passed under direct vision. Throughout the procedure, the patient's blood pressure, pulse, and oxygen saturations were monitored continuously. The pediatric colonoscope was introduced through the anus and advanced to the cecum, identified by appendiceal orifice and ileocecal valve. The colonoscopy was performed without difficulty. The patient tolerated the procedure well. The quality of the bowel preparation was good. The ileocecal valve and the appendiceal orifice were photographed. Scope In: 11:18:38 AM Scope Withdrawal Time 0 hours 5 minutes 45 seconds Scope Out: 11:28:21 AM Total Procedure Duration Time 0 hours 9 minutes 43 seconds Findings: The digital rectal exam was abnormal. The colon (entire examined portion) appeared normal. Biopsies were taken with a cold forceps for histology. Impression: - Abnormal digital rectal exam. - The entire examined colon is normal. Biopsied. Recommendation: - Discharge patient to home. - Resume previous diet. - Continue present medications. - Repeat colonoscopy in 10 years for screening purposes. - Telephone my office for pathology results in 1 week. Procedure Code(s): --- Professional --- 52685, Colonoscopy, flexible; with biopsy, single or multiple Diagnosis Code(s): --- Professional --- K62.89, Other specified diseases of anus and rectum R10.84, Generalized abdominal pain CPT copyright 2017 [employer]. All rights reserved. The codes documented in this report are preliminary and upon environmental resource specialist review may be revised to meet current compliance requirements. Chester Hernandez MD 10/29/2021 11:37:27 AM This report has been signed electronically. Number of Addenda: 0 Note Initiated On: 10/29/2021 11:18 AM
--- NOTE | 2021-10-29 12:14 | SUR.PHASEI ---
dR. Gonzalez TO BEDSIDE TO TRANSLATE DISCHARGE INSTRUCTIONS IN FRENCH. PATIENT AND UNDERSTAND AND ALL QUESTIONS ANSWERED.
--- NOTE | 2021-10-29 12:22 | SUR.PHASEII ---
PT D/C INSTRUCTIONS IN [place].
== END 2021-10-29 23:59 | disposition home or self-care (01) ==
LOC: EN 08:49 → AC 08:49
PROVIDERS: Visit Provider Surgery
PROC: 0DJD8ZZ Inspection of Lower Intestinal Tract, Via Natural or Artificial Opening Endoscopic (ICD-10-PCS; CPT 45378; principal; 2021-10-29 10:10)
DX: K29.50 Unspecified chronic gastritis without bleeding (principal); K44.9 Diaphragmatic hernia without obstruction or gangrene; K76.0 Fatty (change of) liver, not elsewhere classified; K21.00 Gastro-esophageal reflux disease with esophagitis, without bleeding; F17.210 Nicotine dependence, cigarettes, uncomplicated
CPT/HCPCS: 45380; 43239; 87426; 88305; 88313; 88342; J7120; J2405

== ENCOUNTER 2022-12-10 14:18 | Emergency (ER) | payer SELFPAY ==
[2022-12-10 14:18] VITALS: BP 135/78; PULSE 66; RESP 16; TEMP 36.4; O2SAT 99; BMI 30.2
--- NOTE | 2022-12-10 14:26 | CT_ITS ---
INDICATION: Left lower quadrant pain. EXAMINATION: CT Abdomen And Pelvis W/ Contrast Injection TECHNIQUE: Helically acquired images were obtained of the abdomen and pelvis following IV contrast. A radiation dose optimization technique was used for this scan. IV Contrast dosage and agent: 75 mL Isovue-370. Oral contrast: Yes. COMPARISON: August 28, 2021 CT abdomen and pelvis. FINDINGS: LOWER CHEST: Lung bases are clear. No cardiomegaly or pericardial effusion. LIVER: Diffuse steatosis. No focal mass. GALLBLADDER AND BILIARY TREE: No calcified gallstones. No gallbladder distension or wall edema. No intra- or extrahepatic biliary ductal dilation. PANCREAS: No focal cystic or solid mass. SPLEEN: Normal size without focal cystic or solid mass. ADRENAL GLANDS: No nodules. KIDNEYS AND URETERS: Normal renal size and position. No hydronephrosis. PERITONEUM: No ascites or free air. No abnormal localized fluid collection. BOWEL: No evidence of acute appendicitis, normal retrocecal appendix. No stomach or bowel distension. No bowel wall thickening or focal inflammatory changes. LYMPH NODES: No enlarged mesenteric or retroperitoneal lymph nodes. VESSELS: Aorta is non-dilated. No dissection. URINARY BLADDER: Unremarkable. No gas or stone. REPRODUCTIVE ORGANS: No pelvic masses. ABDOMINAL WALL: Small fat-containing umbilical hernia. Benign appearing inguinal lymph nodes. BONES: No lytic or blastic abnormality. Unremarkable for age. CT/Abdomen/Pelvis WITH Contrast IMPRESSION: No appendicitis or acute intra-abdominal findings. Electronically Signed: Portillo Seay MD at 17:09 EDT ,
--- NOTE | 2022-12-10 14:29 | EX.ED.DYSGE1 ---
HPI <ISHAN Whyte - Last Filed: 12/10/22 17:22> History of Present Illness Chief Complaint: Abd Pain Narrative Narrative: 37-year-old male has had sharp LLQ abdominal pain for 1 week that would come and go but today the pain is more severe and constant with associated nausea. No vomiting. No fever or chills. He is having increased bowel movements 2-3 times a day but denies blood. He also has urinary frequency. He has a history of right-sided diverticulitis 1 year ago. No abdominal surgeries. PFSH <ISHAN Whyte - Last Filed: 12/10/22 17:22> PFSH Medical History Diverticulitis GERD (gastroesophageal reflux disease) Poor historian Telugu speaking patient Home Medications amoxicillin 875 mg-potassium clavulanate 125 mg tablet 1 tab PO BID 7 days #14 tabs 12/10/22 [Rx Last Taken Unknown] Allergy/AdvReac Type Severity Reaction Status Date / Time No Known Allergies Allergy Verified 12/10/22 14:20 Social History (Updated 09/27/21 @ 15:05 by Tiffany Monday) Smoking Status: Never smoker alcohol intake: current substance use type: does not use ROS <ISHAN Whyte - Last Filed: 12/10/22 17:22> ROS ED ROS Narrative Constitutional: Negative for fever, chills, malaise. CVS: Negative for palpitations, chest pain. Respiratory: Negative for shortness of breath, cough. GI: Positive for abdominal pain, nausea. Negative for vomiting, diarrhea, constipation, melena, hematochezia. : Positive for frequency. Negative for dysuria, hematuria. EXAM <ISHAN Whyte - Last Filed: 12/10/22 17:22> Physical Exam Narrative Exam Narrative: CONST: Patient sitting in no acute distress. EYES: Normal inspection. NECK: Normal inspection. RESP: No respiratory distress, CTAB. CVS: Regular rate and rhythm, no murmur, no gallop. ABD: Soft with LLQ tenderness, no guarding or rebound, nondistended, no hepatosplenomegaly. Back: Normal inspection, no CVA tenderness. SKIN: Color normal, no rash, warm, dry, intact. EXTREMITIES: Normal appearance, no pedal edema. NEURO: Oriented x4. PSYCH: Normal affect. Const Vital Signs: 12/10/22 14:18 12/10/22 16:46 Temperature 97.6 F L Temperature Source Temporal Pulse Rate 66 Respiratory Rate 16 16 Blood Pressure 135/78 H Blood Pressure Mean 97 Pulse Ox 99 Oxygen Delivery Method Room Air <Dr. Portillo Al MD - Last Filed: 12/10/22 19:12> Physical Exam Const Vital Signs: 12/10/22 14:18 12/10/22 16:46 Temperature 97.6 F L Temperature Source Temporal Pulse Rate 66 Respiratory Rate 16 16 Blood Pressure 135/78 H Blood Pressure Mean 97 Pulse Ox 99 Oxygen Delivery Method Room Air MDM <ISHAN Whyte - Last Filed: 12/10/22 17:22> MDM MDM Narrative Medical decision making narrative: Patient here with left lower quadrant abdominal pain and increased bowel movements. He appears well and nontoxic. Afebrile with normal vital signs. He does have significant LLQ tenderness but no peritoneal signs. CBC and BMP are unremarkable. UA negative for infection. CT shows no acute process. However, he does have history of diverticulitis and I suspect he could have an early recurrence its not showing up on the scan. He will be covered with Augmentin. He was counseled to return for worsening symptoms and was discharged in stable condition. Differential diagnosis: Diverticulitis, abscess, SBO, IBD, kidney stone Lab Data Labs: Laboratory Results - last 24 hr 12/10/22 12/10/22 12/10/22 14:35 14:35 14:40 WBC 5.2 RBC 4.76 Hgb 14.5 Hct 41.9 MCV 88.0 MCH 30.5 MCHC 34.6 RDW Std Deviation 40.4 RDW Coeff of Kathy 12.6 Plt Count 261 MPV 10.3 Immature Gran % (Auto) 0.800 Neut % (Auto) 45.1 L Lymph % (Auto) 42.1 H [place] % (Auto) 8.2 Eos % (Auto) 3.4 Baso % (Auto) 0.4 Absolute Neuts (auto) 2.4 Absolute Lymphs (auto) 2.20 Nucleated RBC % 0 Sodium 141 Potassium 3.6 Chloride 106 Carbon Dioxide 27.0 Anion Gap 8 BUN 16 Creatinine 1.01 Estim Creat Clear Calc 82.22 Est GFR (MDRD) Af Amer 105 Est GFR (MDRD) Non-Af 87 BUN/Creatinine Ratio 15.8 Glucose 139 H Calcium 9.1 Urine Color Yellow Urine Clarity Sl. Cloudy Urine pH 7.0 Ur Specific [place] 1.015 Urine Protein 15 H Urine Glucose (UA) Normal Urine Ketones Negative Urine Occult Blood Negative Urine Nitrite Negative Urine Bilirubin Negative Urine Urobilinogen Normal Ur Leukocyte Esterase 25 H Urine RBC 0 SEEN Urine WBC 0 SEEN Ur Squamous Epith Cells 0 SEEN Amorphous Sediment 2+ Urine Bacteria 0 SEEN Urine Mucus 0 SEEN Radiography Diagnostic Testing: Clinical Impression(s) from Imaging Studies Abdomen/Pelvis CT 12/10/22 14:26 IMPRESSION: No appendicitis or acute intra-abdominal findings. Electronically Signed: Portillo Seay MD at 17:09 EDT , <Dr. Portillo Al MD - Last Filed: 12/10/22 19:12> MDM MDM Narrative Medical decision making narrative: Patient here with left lower quadrant abdominal pain and increased bowel movements. He appears well and nontoxic. Afebrile with normal vital signs. He does have significant LLQ tenderness but no peritoneal signs. CBC and BMP are unremarkable. UA negative for infection. CT shows no acute process. However, he does have history of diverticulitis and I suspect he could have an early recurrence its not showing up on the scan. He will be covered with Augmentin. He was counseled to return for worsening symptoms and was discharged in stable condition. Differential diagnosis: Diverticulitis, abscess, SBO, IBD, kidney stone Servando: Patient was seen by me. I agree with the above extenders note, note was done by both me and the PA as I may have edited some of the above. Lab Data Labs: Laboratory Results - last 24 hr 12/10/22 12/10/22 12/10/22 14:35 14:35 14:40 WBC 5.2 RBC 4.76 Hgb 14.5 Hct 41.9 MCV 88.0 MCH 30.5 MCHC 34.6 RDW Std Deviation 40.4 RDW Coeff of Kathy 12.6 Plt Count 261 MPV 10.3 Immature Gran % (Auto) 0.800 Neut % (Auto) 45.1 L Lymph % (Auto) 42.1 H [place] % (Auto) 8.2 Eos % (Auto) 3.4 Baso % (Auto) 0.4 Absolute Neuts (auto) 2.4 Absolute Lymphs (auto) 2.20 Nucleated RBC % 0 Sodium 141 Potassium 3.6 Chloride 106 Carbon Dioxide 27.0 Anion Gap 8 BUN 16 Creatinine 1.01 Estim Creat Clear Calc 82.22 Est GFR (MDRD) Af Amer 105 Est GFR (MDRD) Non-Af 87 BUN/Creatinine Ratio 15.8 Glucose 139 H Calcium 9.1 Urine Color Yellow Urine Clarity Sl. Cloudy Urine pH 7.0 Ur Specific [place] 1.015 Urine Protein 15 H Urine Glucose (UA) Normal Urine Ketones Negative Urine Occult Blood Negative Urine Nitrite Negative Urine Bilirubin Negative Urine Urobilinogen Normal Ur Leukocyte Esterase 25 H Urine RBC 0 SEEN Urine WBC 0 SEEN Ur Squamous Epith Cells 0 SEEN Amorphous Sediment 2+ Urine Bacteria 0 SEEN Urine Mucus 0 SEEN Radiography Diagnostic Testing: Clinical Impression(s) from Imaging Studies Abdomen/Pelvis CT 12/10/22 14:26 IMPRESSION: No appendicitis or acute intra-abdominal findings. Electronically Signed: Portillo Seay MD at 17:09 EDT , Discharge Plan Triage Chief Complaint: Abd Pain ED Midlevel Provider: Celestina Marvin ED Provider: Portillo Al Dx/Rx/DC Orders Clinical Impression: Abdominal pain Instructions: Abdominal Pain Prescriptions: New amoxicillin-pot clavulanate 875-125 mg tablet 1 tab PO BID 7 Days Qty: 14 0RF Primary Care Provider: Care Physician,No Primary Referrals: Care Physician,No Primary [Primary Care Provider] - Activity Restrictions/Additional Instructions: Your blood work and CT scan looked normal but I am going to prescribe antibiotics to treat possible early diverticulitis. Please take tylenol or motrin as needed for pain. Return to ER for worsening symptoms. Disposition Disposition: Home, Self Care Discharge Date/Time: 12/10/22 17:23
[2022-12-10] MEDS: Ondansetron 4 MG/2 ML Vial IV (14:41)
[2022-12-10] MEDS: 0.9% Normal Saline 1,000 ML 999 ML IV (14:41)
[2022-12-10 14:42] LABS: Absolute Neutrophil Count 2.4 X10^3/uL (2.0-7.7); Basophil# 0.02 X10^3/uL; Basophil% 0.4 % (0-1); Eosinophil# 0.18 X10^3/uL; Eosinophils% 3.4 % (0-5); Hematocrit 41.9 % (40-54); Hemoglobin 14.5 g/dL (13.0-16.5); Lymphocyte % 42.1 % (19-41); Mean Corp Hgb Conc 34.6 g/dL (32-36); Mean Corpuscular Hgb 30.5 pg (27.0-32.0); Mean Platelet Vol. 10.3 fl (6.2-12.0); Monocyte# 0.43 X10^3/uL; Monocyte% 8.2 % (0-10); NRBC Flagged by Analyzer 0 % (0-5); Neutrophil # 2.36 X10^3/uL (2.7-7.7); Neutrophil % 45.1 % (47-70); Platelet Count 261 K/mm3 (150-450); RBC Distribution Width CV 12.6 % (11.6-14.6); RBC Distribution Width SD 40.4 fl (35.1-43.9); Red Blood Count 4.76 M/mm3 (4.6-6.2); White Blood Count 5.2 K/mm3 (4.4-11.0)
[2022-12-10] MEDS: Morphine 4 MG/ML Syringe IV (14:42)
[2022-12-10 14:54] LABS: Bacteria 0 SEEN /hpf (None Seen); Mucous, Urine 0 SEEN /hpf (<or=2+); Red Blood Cells-Urine 0 SEEN /hpf (0-5); Squamous Epithelial Cells - UA 0 SEEN /hpf (0-5); White Blood Cells 0 SEEN /hpf (0-5)
[2022-12-10 14:54] LABS: Anion Gap 8 (5-15); BUN 16 mg/dL (7-18); BUN/Creat Ratio 15.8 RATIO (10-20); Calcium,Total 9.1 mg/dL (8.5-10.1); Chloride 106 mmol/L (98-107); Creatinine, Serum 1.01 mg/dL (0.70-1.30); EST Glomerular Filtration Rate 87 mL/min (>60); Est Glom Filt Rate - Afr Amer 105 mL/min (>60); Estimated Creatinine Clearance 82.22 ml/min; Glucose 139 mg/dL (74-106); Potassium 3.6 mmol/L (3.5-5.1); Sodium Level 141 mmol/L (136-145)
[2022-12-10 15:00] LABS: Color, Urine Yellow (Yellow); Glucose, Dipstick Normal (Normal); Ketone-Dipstick Negative (Negative); Leukocyte Esterase-Dipstick 25 /ul (Negative); Nitrite-Dipstick Negative (Negative); Occult Blood-Urine Negative /ul (Negative); Protein-Dipstick 15 mg/dl (Negative); Specific Gravity, Urine 1.015 (1.002-1.030); Urine Bilirubin Dipstick Negative (Negative); Urine Clarity Sl. Cloudy (Clear); Urine Urobilinogen Normal (Normal)
[2022-12-10 15:15] LABS: Amorphous Sediment 2+
[2022-12-10 16:46] VITALS: RESP 16
== END 2022-12-10 17:23 | disposition home or self-care (01) ==
PROVIDERS: Physician Assistant; Emergency Provider Emergency Medicine; Visit Provider Emergency Medicine
DX: R10.9 Unspecified abdominal pain (principal)
CPT/HCPCS: 74177; 80048; 81001; 85025; 96361; 96374; 96375; 99283; J7030; Q9967; A4216; J2405

== ENCOUNTER 2023-09-08 19:59 | Emergency (ER) | payer SELFPAY ==
[2023-09-08 19:59] VITALS: BP 141/88; PULSE 73; RESP 15; TEMP 36.4; O2SAT 99; BMI 33.1
[2023-09-08 20:17] LABS: Absolute Lymphocyte Count 2.24 X10^3/uL (0.83-4.51); Absolute Neutrophil Count 2.5 X10^3/uL (2.0-7.7); Basophil# 0.05 X10^3/uL; Basophil% 0.9 % (0-1); Eosinophil# 0.16 X10^3/uL; Eosinophils% 2.9 % (0-5); Hematocrit 42.6 % (40-54); Hemoglobin 14.4 g/dL (13.0-16.5); Lymphocyte # 2.24 X10^3/ul (0.83-4.51); Lymphocyte % 40.3 % (19-41); Mean Corp Hgb Conc 33.8 g/dL (32-36); Mean Corpuscular Hgb 29.4 pg (27.0-32.0); Mean Corpuscular Volume 86.9 fL (80-94); Mean Platelet Vol. 10.4 fl (6.2-12.0); Monocyte# 0.55 X10^3/uL; Monocyte% 9.9 % (0-10); NRBC Flagged by Analyzer 0 % (0-5); Neutrophil # 2.54 X10^3/uL (2.7-7.7); Neutrophil % 45.6 % (47-70); Platelet Count 271 K/mm3 (150-450); RBC Distribution Width CV 12.3 % (11.6-14.6); White Blood Count 5.6 K/mm3 (4.4-11.0)
[2023-09-08 20:33] LABS: ALB/GLOB Ratio 1.1 RATIO (0.9-2.4); AST(SGOT) 73 U/L (15-37); Alanine Aminotransfer ALT/SGPT 193 U/L (16-61); Alkaline Phosphatase 117 U/L (45-117); Anion Gap 6 (5-15); BUN 15 mg/dL (7-18); BUN/Creat Ratio 16.1 RATIO (10-20); Calcium,Total 9.1 mg/dL (8.5-10.1); Chloride 108 mmol/L (98-107); Creatinine, Serum 0.93 mg/dL (0.70-1.30); EST Glomerular Filtration Rate 95 mL/min (>60); Est Glom Filt Rate - Afr Amer 115 mL/min (>60); Estimated Creatinine Clearance 98.02 ml/min; Globulin 3.8 g/dL (2.2-4.2); Glucose 122 mg/dL (74-106); Potassium 3.5 mmol/L (3.5-5.1); Protein, Total 7.8 g/dL (6.4-8.2); Sodium Level 140 mmol/L (136-145)
--- NOTE | 2023-09-08 20:50 | CT_ITS ---
INDICATION: LLQ pain EXAMINATION: CT ABDOMEN AND PELVIS WITH CONTRAST - CT Abdomen And Pelvis W/ Contrast Injection TECHNIQUE: Helically acquired images were obtained of the abdomen and pelvis following IV contrast. A radiation dose optimization technique was used for this scan. IV Contrast dosage and agent: 100 cc Isovue-370 Oral contrast: None. COMPARISON: 12/10/2022 FINDINGS: LOWER CHEST: Mild bibasilar dependent changes. No cardiomegaly or pericardial effusion. LIVER: Homogeneous. No focal mass. GALLBLADDER AND BILIARY TREE: No calcified gallstones. No gallbladder distension or wall edema. No intra- or extrahepatic biliary ductal dilation. PANCREAS: No focal cystic or solid mass. SPLEEN: Normal size without focal cystic or solid mass. ADRENAL GLANDS: No nodules. KIDNEYS AND URETERS: Normal renal size and position. No hydronephrosis. PERITONEUM: No ascites or free air. BOWEL: Normal appendix. No stomach or bowel distension. No focal inflammatory change. LYMPH NODES: Stable scattered minimally enlarged mesenteric lymph nodes in the midabdomen. VESSELS: Aorta is non-dilated. URINARY BLADDER: Unremarkable. REPRODUCTIVE ORGANS: No pelvic masses. ABDOMINAL WALL: Small fat-containing umbilical hernia. BONES: Unremarkable. CT/Abdomen/Pelvis W IV Cont ONLY IMPRESSION: No acute findings in the abdomen or pelvis. Electronically Signed: Stephen Diane MD at 22:05 EST ,
--- NOTE | 2023-09-08 20:56 | EDS_ITS ---
HPI <ISHAN Burr - Last Filed: 09/08/23 22:06> History of Present Illness Chief Complaint: Abd Pain Narrative Narrative: Patient presenting today due to intermittent left lower quadrant abdominal pain he has had since Monday. He reports a history of diverticulitis in the past and thinks that this feels similar. He reports that he did notice bright red blood in his stool on Monday but has not had any blood in his stool since then including black/tarry stools. He has had intermittent nausea. He denies fevers, chills, vomiting, and urinary symptoms. No history of kidney stones. He denies a PMH of any chronic health conditions. He is here with his daughter who is translating for him. PFSH <ISHAN Burr - Last Filed: 09/08/23 22:06> PFSH Medical History Diverticulitis GERD (gastroesophageal reflux disease) Poor historian Mong[place]ian speaking patient Home Medications amoxicillin 875 mg-potassium clavulanate 125 mg tablet 1 tab PO BID 7 days #14 tabs 12/10/22 [Rx Last Taken Unknown] Allergy/AdvReac Type Severity Reaction Status Date / Time No Known Allergies Allergy Verified 09/08/23 20:01 Social History Smoking Status: Never smoker alcohol intake: current substance use type: does not use ROS <ISHAN Burr - Last Filed: 09/08/23 22:06> ROS ED Constitutional Constitutional ED: Denies chills or fever(s) Cardiovascular Cardiovascular: Denies chest pain Respiratory/Chest Respiratory/Chest: Denies cough or dyspnea Gastrointestinal Gastrointestinal: Reports abdominal pain and nausea; Denies constipation, diarrhea or vomiting Genitourinary Genitourinary ED: Denies dysuria, hematuria or urinary urgency Musculoskeletal Musculoskeletal: Denies arthralgias, back pain, myalgias or neck pain Integumentary Denies abscess, Abrasions or rash Neurologic Neurologic: Denies confusion, dizziness or paresthesias Psychiatric Psychiatric: Denies anxiety, depression, suicidal ideation or suicidal thoughts Allergic/Immunologic Allergic/Immunologic ED: Denies lip swelling, mouth swelling or urticaria EXAM <ISHAN Burr - Last Filed: 09/08/23 22:06> Physical Exam Const Vital Signs: 09/08/23 19:59 Temperature 97.5 F L Temperature Source Temporal Pulse Rate 73 Respiratory Rate 15 Blood Pressure 141/88 H Blood Pressure Mean 105 Pulse Ox 99 Oxygen Delivery Method Room Air Positive well nourished, well developed and no apparent distress General Appearance ED: well developed HEENT Reports normocephalic and head/scalp atraumatic Mouth ED: Yes moist mucous membranes normal Eyes PERRL and EOMs intact bilaterally Neck full ROM and supple Chest Wall inspection of chest normal Resp normal respiratory effort and clear to auscultation bilaterally Cardio regular rate and regular rhythm GI soft to palpation, non-distended and no masses GI Narrative: Left lower quadrant tenderness to palpation without any rigidity, guarding, or peritoneal signs Back/Spine normal ROM and normal to inspection Extremity normal to inspection and full ROM Neuro oriented x3, CN's II-XII intact bilaterally, moves all extremities, no focal motor deficits and no sensory deficits noted Sensorium / Orientation: awake and alert Psych mental status grossly normal and thought process normal Skin no rashes or lesions noted and no wounds <Dr. Hola Chowdary DO - Last Filed: 09/08/23 22:22> Physical Exam Const Vital Signs: 09/08/23 19:59 Temperature 97.5 F L Temperature Source Temporal Pulse Rate 73 Respiratory Rate 15 Blood Pressure 141/88 H Blood Pressure Mean 105 Pulse Ox 99 Oxygen Delivery Method Room Air MDM <ISHAN Burr - Last Filed: 09/08/23 22:06> [facility] MDM Narrative Medical decision making narrative: Patient presenting with left lower quadrant abdominal pain that started on Monday. History of diverticulitis, this feels similar. He is well-appearing and in no acute distress, vitals are unremarkable. CT of the abdomen and pelvis will be obtained to rule out diverticulitis, kidney stone, bowel obstruction, and other etiology. Labs will be obtained to rule out leukocytosis, anemia, electrolyte abnormality, QUIN, UTI, and hepatobiliary etiology. He will be given IV Zofran and Toradol. Lab Data Attestation: I reviewed the patient's lab results. Lab results narrative: AST 73, ALT 193 Labs: Laboratory Results - last 24 hr 09/08/23 09/08/23 20:10 21:38 WBC 5.6 RBC 4.90 Hgb 14.4 Hct 42.6 MCV 86.9 MCH 29.4 MCHC 33.8 RDW Std Deviation 39.0 RDW Coeff of Kathy 12.3 Plt Count 271 MPV 10.4 Immature Gran % (Auto) 0.400 Neut % (Auto) 45.6 L Lymph % (Auto) 40.3 [place] % (Auto) 9.9 Eos % (Auto) 2.9 Baso % (Auto) 0.9 Absolute Neuts (auto) 2.5 Absolute Lymphs (auto) 2.24 Nucleated RBC % 0 Sodium 140 Potassium 3.5 Chloride 108 H Carbon Dioxide 26.0 Anion Gap 6 BUN 15 Creatinine 0.93 Estim Creat Clear Calc 98.02 Est GFR (MDRD) Af Amer 115 Est GFR (MDRD) Non-Af 95 BUN/Creatinine Ratio 16.1 Glucose 122 H Calcium 9.1 Total Bilirubin 0.30 AST 73 H ALT 193 H Alkaline Phosphatase 117 Total Protein 7.8 Albumin 4.0 Globulin 3.8 Albumin/Globulin Ratio 1.1 Urine Color Yellow Urine Clarity Sl. Cloudy Urine pH 7.0 Ur Specific [place] 1.010 Urine Protein Negative Urine Glucose (UA) Normal Urine Ketones Negative Urine Occult Blood Negative Urine Nitrite Negative Urine Bilirubin Negative Urine Urobilinogen Normal Ur Leukocyte Esterase Negative Urine RBC 0 SEEN Urine WBC 0 SEEN Ur Squamous Epith Cells 0-5 SEEN Urine Bacteria 0 SEEN Urine Mucus 0 SEEN Radiography Diagnostic Testing: Clinical Impression(s) from Imaging Studies Abdomen/Pelvis CT 09/08/23 20:50 IMPRESSION: No acute findings in the abdomen or pelvis. Electronically Signed: Stephen Diane MD at 22:05 EST Reading Location ID and State: [facility] / [place] Tel , Service support , <Dr. Hola Chowdary, DO - Last Filed: 09/08/23 22:22> [facility] Lab Data Labs: Laboratory Results - last 24 hr 09/08/23 09/08/23 20:10 21:38 WBC 5.6 RBC 4.90 Hgb 14.4 Hct 42.6 MCV 86.9 MCH 29.4 MCHC 33.8 RDW Std Deviation 39.0 RDW Coeff of Kathy 12.3 Plt Count 271 MPV 10.4 Immature Gran % (Auto) 0.400 Neut % (Auto) 45.6 L Lymph % (Auto) 40.3 [place] % (Auto) 9.9 Eos % (Auto) 2.9 Baso % (Auto) 0.9 Absolute Neuts (auto) 2.5 Absolute Lymphs (auto) 2.24 Nucleated RBC % 0 Sodium 140 Potassium 3.5 Chloride 108 H Carbon Dioxide 26.0 Anion Gap 6 BUN 15 Creatinine 0.93 Estim Creat Clear Calc 98.02 Est GFR (MDRD) Af Amer 115 Est GFR (MDRD) Non-Af 95 BUN/Creatinine Ratio 16.1 Glucose 122 H Calcium 9.1 Total Bilirubin 0.30 AST 73 H ALT 193 H Alkaline Phosphatase 117 Total Protein 7.8 Albumin 4.0 Globulin 3.8 Albumin/Globulin Ratio 1.1 Urine Color Yellow Urine Clarity Sl. Cloudy Urine pH 7.0 Ur Specific [place] 1.010 Urine Protein Negative Urine Glucose (UA) Normal Urine Ketones Negative Urine Occult Blood Negative Urine Nitrite Negative Urine Bilirubin Negative Urine Urobilinogen Normal Ur Leukocyte Esterase Negative Urine RBC 0 SEEN Urine WBC 0 SEEN Ur Squamous Epith Cells 0-5 SEEN Urine Bacteria 0 SEEN Urine Mucus 0 SEEN Radiography Diagnostic Testing: Clinical Impression(s) from Imaging Studies Abdomen/Pelvis CT 09/08/23 20:50 IMPRESSION: No acute findings in the abdomen or pelvis. Electronically Signed: Stephen Diane MD at 22:05 EST Reading Location ID and State: [address] [place] [address] Tel , Service support , Treatment and Re-Evaluation :: I have personally performed a face to face assessment of the patient and have reviewed the GORDON Note. I performed a substantive portion of the visit including all aspects of the following. My krause findings include: History: Patient presents with left-sided abdominal pain that has been getting worse over the past 3 days. Patient states it is gradually getting worse. Patient describes it as sharp. Patient states the pain is over the left side of his abdomen. Patient states it is worse with movement. Patient states it is better with sleeping. Patient admits to some nausea but denies any vomiting. Patient admits to some diarrhea but denies any melena or hematochezia. Patient denies any urinary complaints. Patient states that this feels similar to prior episode of diverticulitis Exam: Vital signs are stable. Patient is afebrile. Patient is in no acute distress. Oral mucosa is pink and moist. Neck is supple. Trachea is midline. There is no JVD. Heart was regular rate and rhythm. Lungs are clear and equal bilaterally. Abdomen is soft. Bowel sounds are normal. There is tenderness of the left lower abdomen. There is no rebound or guarding noted. Cranial nerves II through XII are intact. There are no focal motor or sensory deficits noted. Medical Decision Making: Differential diagnosis includes diverticulitis, bowel obstruction, perforation, gastroenteritis, ureteral calculus, urinary tract infection, and viral illness. CT scan of the abdomen pelvis will be obtained to assess for diverticulitis, bowel obstruction, perforation, and abscess. CBC will be obtained to assess for leukocytosis and anemia. Comprehensive metabolic profile will be obtained to assess for hepatic function, renal function, and electrolyte abnormality. Urinalysis will be obtained to assess for urinary tract infection and hematuria. Patient was given IV fluids, Zofran and Toradol. CBC was reviewed and was within normal limits. Comprehensive metabolic profile was reviewed. AST was slightly elevated at 73 and ALT was elevated at 193. Urinalysis was reviewed. There is no evidence of urinary tract infection or hematuria. CT scan of the abdomen pelvis was obtained. There is no evidence of bowel obstruction or perforation. There is no free air or free fluid. There is no evidence of diverticulitis or abscess. This was interpreted by the radiologist was also independently reviewed by myself. Patient was advised of his findings. Patient is feeling better on reevaluation. Patient was instructed to start with a bland diet and advance as tolerated. Patient was instructed to follow-up with his primary care physician in 5 to 7 days. Patient understood and was agreeable with the plan. All questions were answered. Discharge Plan Triage Chief Complaint: Abd Pain ED Midlevel Provider: Celeste Astudillo ED Provider: Hola Chowdary Dx/Rx/DC Orders Clinical Impression: Abdominal pain Instructions: ED Abdominal Pain Unkn Cause Male... Prescriptions: No Action amoxicillin-pot clavulanate 875-125 mg tablet 1 tab PO BID 7 Days Qty: 14 0RF Primary Care Provider: Care Physician,No Primary Referrals: Adan Jamil MD [Med Staff - Taste Tester] - 5-7 Days Care Physician,No Primary [Primary Care Provider] - Disposition Disposition: Home, Self Care
[2023-09-08] MEDS: Ondansetron 4 MG/2 ML Vial IV (21:03)
[2023-09-08] MEDS: Ketorolac 15 MG/ML Vial IV (21:03)
--- OUTSIDE RECORDS SUMMARY | 2023-09-08 21:15 | XMS RPT_ITS | CCD ---
Author Name Unknown Address [address] [facility] [address] [place] [address] Organization [facility] Care Team Providers Care Composition Worker Name Role Phone Hiren Ruvalcaba MD Primary Care Provider Medications Current Medications Medication Drug Class(es) Dates Sig (Normalized) Sig (Original) doxycycline monohydrate 100 mg oral tablet (2 sources) Tetracycline-clas s Drug Start: 03-20-2022 End: 03-27-2022 take 1 tablet by mouth twice daily doxycycline monohydrate 100 mg tablet Indications: Lower resp. tract infection Take 1 tablet by mouth twice daily for 7 days. 14 tablet 0 03/20/2022 03/27/2022 Active Completed/Discontinued Medications Medication Drug Class(es) Dates Sig (Normalized) Sig (Original) dicyclomine hydrochloride 10 mg oral capsule (3 sources) Anticholinergic Start: 06-30-2017 take 1 capsule by mouth at bedtime dicyclomine (BENTYL) 10 mg capsule Take 1 capsule by mouth before meals and at bedtime. 40 capsule 0 06/30/2017 Active Problems Problem Classification Problem Date Documented Da te Episodic/Chronic Abdominal pain (1 source) Abdominal pain; Translations: [Unspecified abdominal pain] Episodic Other lower respiratory disease (1 source) Lower respiratory tract infection; Translations: [Unspecified acute lower respiratory infection] Episodic Results Test Name Value Interpretation Reference Range Facil ity Vital Signs Date Time Vital Sign Value Performing Clinician Faci lity 03-20-2022 11:43-0400 Body temperature 97.81 [degF] Sage Duggan APRN.CNP Work Phone: [facility] 03-20-2022 11:43-0400 Body weight 75.75 kg Sage Duggan APRN.CNP Work Phone: [facility] 03-20-2022 11:43-0400 Diastolic blood pressure 82 mm[Hg] Sage King COST RECORDER.COPPERSMITH APPRENTICE Work Phone: [facility] 03-20-2022 11:43-0400 Heart rate 70 /min Sage Duggan COST RECORDER.COPPERSMITH APPRENTICE Work Phone: [facility] 03-20-2022 11:43-0400 Respiratory rate 16 /min Sage Duggan COST RECORDER.COPPERSMITH APPRENTICE Work Phone: [facility] 03-20-2022 11:43-0400 SaO2% (BldA) [Mass fraction] 98 % Sage Duggan COST RECORDER.COPPERSMITH APPRENTICE Work Phone: [facility] 03-20-2022 11:43-0400 Systolic blood pressure 120 mm[Hg] Sage Duggan COST RECORDER.COPPERSMITH APPRENTICE Work Phone: [facility] Encounters Encounter Date Encounter Type Care Provider Facility Start: 12-10-2022 End: 12-10-2022 Patient encounter procedure Lola Thompson PA-C Work Phone: [facility] Plan of Treatment Date Care Activity Detail Author Start: 03-17-2023 Influenza vaccination INFLUENZA (Season Ended) [facility] damion Start: 07-17-2022 DEPRESSION ASSESSMENT DEPRESSION ASSESSMENT [facility] Start: 03-17-2022 Influenza vaccination INFLUENZA (#1) [facility] Start: 08-26-2021 COVID-19 VACCINE (3 - Booster for Pfizer series) COVID-19 VACCINE (3 - Booster for Pfizer series) [facility] Start: 05-21-2021 COVID-19 VACCINE (3 - Booster for Pfizer series) COVID-19 VACCINE (3 - Booster for Pfizer series) [facility] Start: 2018 LIPID SCREEN LIPID SCREEN [facility] Start: 2002 Urine microalbumin profile DTAP,TDAP,TD (1 - Tdap) [facility] Start: 2001 HEPATITIS C SCREENING HEPATITIS C SCREENING [facility] Start: 2001 HIV SCREENING HIV SCREENING [facility] Start: 1995 Adult depression screening assessment DEPRESSION SCREENING [facility] Start: 1983 HEPATITIS B (1 of 3 - 3-dose series) HEPATITIS B (1 of 3 - 3-dose series) [facility] Influenza virus A an d B RNA and SARS-CoV-2 (COVID-19) N gene panel - Respiratory specimen by KENTRELL with probe detection COVID WITH FLUA+B, ROUTINE Microbiology Routine Lower resp. tract infection Ordered: 03/20/2022 [facility] Work Phone: Immunizations Immunization Date Immunization Notes Care Provider Chauncey moreno 05-04-2018 influenza, injectabl e, quadrivalent, contains preservative Sage Duggan APRN.COPPERSMITH APPRENTICE Work Phone: [facility] Social History Date Type Detail Facility Start: 01-26-2018 Tobacco smoking stat us GAIS Never smoked tobacco [facility] Work Phone: Start: 01-26-2018 Tobacco use and exposure Smokeless tobacco non-user [facility] Work Phone: Start: 05-04-2018 Alcohol intake Current drinke r of alcohol (finding) [facility] Start: 05-04-2018 [facility] Start: 1985 Sex Assigned [facility] History of Present illness Narrative 12-10-2022 Lola Thompson PA-C - 12/10/2022 2:10 PM EDT Note Date & Type Note Facility 12-10-2022 History of Presen t illness Narrative Presents to [facility] care triage with lower abdominal pain worsening over the past day. He had pain a couple weeks ago but that went away. This morning he has had sharp pain off and on in the left lower quadrant and now is rating into his back. He has a history of diverticulitis on a CT scan last year. No fever or vomiting. Has had some trouble urinating. Discussed with patient would recommend being seen in the emergency department to rule out diverticulitis versus kidney stone. Patient agreeable and will go to [facility]. documented in this encounter [facility] Note 03-21-2022 Telephone Encounter - Ivania Garcia - 03/21/2022 8:35 AM EDTTelephone Encounter - Sarah Glasgow APRN.CNP - 03/21/2022 8:14 AM EDT Note Date & Type Note Facility 03-21-2022 Miscellaneous Notes Formattin g of this note might be different from the original. Patient given results and verbalized understanding of instructions given. Ivania Garcia Patient positive for COVID please notify negative for flu tell her to quarantine for the first 5 days of symptoms and then mask for the second half of the 5 days of symptoms thank you documented in this encounter [facility] Progress note 03-20-2022 Note Date & Type Note Facility 03-20-2022 Note HNO ID: [id number] Author: Sage Duggan APRN.CHELSEY Service: ? Author Type: Nurse Practitioner Type: Progress Notes Filed: 03/20/2022 12:16 PM Note Text: Subjective HPI HPI Preet Fernanedz is a 37 year old male who presents today for CC of cough, congestion, st, fever, body aches. This started 2 days ago. Has tried otc medication for relief. Symptoms are worsened by nothing. Risk factors intermittent smoker. Denies known sick exposure. Denies cp/sob, n/v/d, ear pain. .Patient presents with: Sore Throat: X 2 days, body aches, starting to cough PAST MEDICAL HISTORY Diagnosis Date Constipation Overweight (BMI 25.0-29.9) PAST SURGICAL HISTORY Procedure Laterality Date NONE ALLERGIES Patient has no known allergies. MEDICATIONS predniSONE (DELTASONE) 20 mg tablet Take 2 tablets by mouth once daily for 5 days. doxycycline monohydrate 100 mg tablet Take 1 tablet by mouth twice daily for 7 days. docusate sodium (COLACE) 100 mg capsule Take 1 capsule by mouth twice daily as needed for Constipation. (Patient not taking: Reported on 03/20/2022) naproxen (NAPROSYN) 500 mg tablet Take 1 tablet by mouth twice daily as needed. Take with food. (Patient not taking: Reported on 03/20/2022) polyethylene glycol 3350 (MIRALAX, GLYCOLAX) 17 gram packet Take 1 Packet by mouth once daily. With 8oz water daily (Patient not taking: Reported on 01/26/2018 ) dicyclomine (BENTYL) 10 mg capsule Take 1 capsule by mouth before meals and at bedtime. (Patient not taking: Reported on 01/26/2018 ) psyllium Husk (FIBER) 0.52 gram capsule Take 1 capsule by mouth once daily. (Patient not taking: Reported on 01/26/2018 ) FAMILY HISTORY Problem Relation Age of Onset Cancer Father 69 brain Social History Tobacco Use Smoking status: Never Smokeless tobacco: Never Substance Use Topics Alcohol use: Yes Alcohol/week: 5.0 standard drinks Types: 2 Cans of Beer (12oz) per week Drug use: No ROS Objective Physical Exam Constitutional: General: He is not in acute distress. Appearance: He is not toxic-appearing or diaphoretic. HENT: Head: Normocephalic and atraumatic. Right Ear: Hearing, tympanic membrane, ear canal and external ear normal. Left Ear: Hearing, tympanic membrane, ear canal and external ear normal. Nose: Nose normal. Mouth/Throat: Pharynx: Uvula midline. No pharyngeal swelling, oropharyngeal exudate, posterior oropharyngeal erythema or uvula swelling. Eyes: General: Lids are normal. No scleral icterus. Right eye: No discharge. Left eye: No discharge. Conjunctiva/sclera: Conjunctivae normal. Pupils: Pupils are equal, round, and reactive to light. Neck: Trachea: Trachea normal. Cardiovascular: Rate and Rhythm: Normal rate and regular rhythm. Heart sounds: Normal heart sounds. Pulmonary: Effort: Pulmonary effort is normal. Breath sounds: Examination of the right-lower field reveals rales. Examination of the left-lower field reveals rales. Rales (scattered bilat.) present. Musculoskeletal: Cervical back: Normal range of motion and neck supple. Lymphadenopathy: Cervical: No cervical adenopathy. Right cervical: No superficial cervical adenopathy. Left cervical: No superficial cervical adenopathy. Skin: Findings: No rash. Neurological: Mental Status: He is alert and oriented to person, place, and time. ASSESSMENT/PLAN: 1. Lower resp. tract infection - ICD9: 519.8, ICD10: J22 No xray at time of exam. Start steroid today Hold atb rx for 3 days if worsening s/s fill and take. -If you experience chest pain/shortness of breath go to ER Discussed quarantine, social distancing otc medications discussed Push fluids -If you experience chest pain/shortness of breath go to ER - PREDNISONE 20 MG TABLET - DOXYCYCLINE MONOHYDRATE 100 MG TABLET Agrees to plan Sage Duggan APRN.CHELSEY [facility] History of Present illness Narrative 03-20-2022 Sage Duggan APRN.CHELSEY - 03/20/2022 12:13 PM EDT Note Date & Type Note Facility 03-20-2022 History of Presen t illness Narrative Subjective HPI HPI Preet Fernandez is a 37 year old male who presents today for CC of cough, congestion, st, fever, body aches. This started 2 days ago. Has tried otc medication for relief. Symptoms are worsened by nothing. Risk factors intermittent smoker. Denies known sick exposure. Denies cp/sob, n/v/d, ear pain. .Patient presents with: Sore Throat: X 2 days, body aches, starting to cough PAST MEDICAL HISTORY Diagnosis Date Constipation Overweight (BMI 25.0-29.9) PAST SURGICAL HISTORY Procedure Laterality Date NONE ALLERGIES Patient has no known allergies. MEDICATIONS predniSONE (DELTASONE) 20 mg tablet Take 2 tablets by mouth once daily for 5 days. doxycycline monohydrate 100 mg tablet Take 1 tablet by mouth twice daily for 7 days. docusate sodium (COLACE) 100 mg capsule Take 1 capsule by mouth twice daily as needed for Constipation. (Patient not taking: Reported on 03/20/2022) naproxen (NAPROSYN) 500 mg tablet Take 1 tablet by mouth twice daily as needed. Take with food. (Patient not taking: Reported on 03/20/2022) polyethylene glycol 3350 (MIRALAX, GLYCOLAX) 17 gram packet Take 1 Packet by mouth once daily. With 8oz water daily (Patient not taking: Reported on 01/26/2018 ) dicyclomine (BENTYL) 10 mg capsule Take 1 capsule by mouth before meals and at bedtime. (Patient not taking: Reported on 01/26/2018 ) psyllium Husk (FIBER) 0.52 gram capsule Take 1 capsule by mouth once daily. (Patient not taking: Reported on 01/26/2018 ) FAMILY HISTORY Problem Relation Age of Onset Cancer Father 69 brain Social History Tobacco Use Smoking status: Never Smokeless tobacco: Never Substance Use Topics Alcohol use: Yes Alcohol/week: 5.0 standard drinks Types: 2 Cans of Beer (12oz) per week Drug use: No ROS Objective Physical Exam Constitutional: General: He is not in acute distress. Appearance: He is not toxic-appearing or diaphoretic. HENT: Head: Normocephalic and atraumatic. Right Ear: Hearing, tympanic membrane, ear canal and external ear normal. Left Ear: Hearing, tympanic membrane, ear canal and external ear normal. Nose: Nose normal. Mouth/Throat: Pharynx: Uvula midline. No pharyngeal swelling, oropharyngeal exudate, posterior oropharyngeal erythema or uvula swelling. Eyes: General: Lids are normal. No scleral icterus. Right eye: No discharge. Left eye: No discharge. Conjunctiva/sclera: Conjunctivae normal. Pupils: Pupils are equal, round, and reactive to light. Neck: Trachea: Trachea normal. Cardiovascular: Rate and Rhythm: Normal rate and regular rhythm. Heart sounds: Normal heart sounds. Pulmonary: Effort: Pulmonary effort is normal. Breath sounds: Examination of the right-lower field reveals rales. Examination of the left-lower field reveals rales. Rales (scattered bilat.) present. Musculoskeletal: Cervical back: Normal range of motion and neck supple. Lymphadenopathy: Cervical: No cervical adenopathy. Right cervical: No superficial cervical adenopathy. Left cervical: No superficial cervical adenopathy. Skin: Findings: No rash. Neurological: Mental Status: He is alert and oriented to person, place, and time. ASSESSMENT/PLAN: 1. Lower resp. tract infection - ICD9: 519.8, ICD10: J22 No xray at time of exam. Start steroid today Hold atb rx for 3 days if worsening s/s fill and take. -If you experience chest pain/shortness of breath go to ER Discussed quarantine, social distancing otc medications discussed Push fluids -If you experience chest pain/shortness of breath go to ER - PREDNISONE 20 MG TABLET - DOXYCYCLINE MONOHYDRATE 100 MG TABLET Agrees to plan Sage Duggan APRN.CHELSEY documented in this encounter [facility] Evaluation note Note Date & Type Note Facility documented in this encounter [facility] Evaluation note Note Date & Type Note Facility documented in this encounter [facility] Summary Purpose Family History No Family History Records Found Advance Directives No Advanced Directives Records Found Health Concerns Infection Onset Date Last Indicated Resolved Time COVID-19 Confirmed 03/20/2022 03/20/2022 Additional Source Comments Source Comments (unrecognize d section and content) In the event this informatio n is protected by the Federal Confidentiality of Alcohol and Drug Abuse Patient Records regulations: The Federal rules restrict any use of the information to criminally investigate or prosecute any alcohol or drug abuse patient.[facility] the event this information is protected by the Federal Confidentiality of Alcohol and Drug Abuse Patient Records regulations: The Federal rules restrict any use of the information to criminally investigate or prosecute any alcohol or drug abuse patient.[facility] the event this information is protected by the Federal Confidentiality of Alcohol and Drug Abuse Patient Records regulations: The Federal rules restrict any use of the information to criminally investigate or prosecute any alcohol or drug abuse patient.[facility] Reason for Visit (unrecogniz ed section and content) Reason Comments Results Care Teams (unrecognized sec tion and content) Composition Worker Relationship Specialty Start Date End Date Hiren Ruvalcaba MD [address] [place], [place] [address] PCP - General Family Practice 05/07/18 Composition Worker Relationship Specialty Start Date End Date Hiren Ruvalcaba MD [address] [place] [id number] PCP - General Family Medicine 05/07/18 (unrecognized sect ion and content) No Status Records Found INFORMATION SOURCE (unrecogn ized section and content) FOR RECORDS PERTAINING TO PATIENTS WHO ARE OR HAVE BEEN ENROLLED IN A CHEMICAL DEPENDENCY/SUBSTANCEABUSE PROGRAM, SOME INFORMATION MAY BE OMITTED. This clinical summary was aggregated from multiple sources. Caution should be exercised in using it in the provision of clinical care. This summary normalizes information from multiple sources, and as a consequence, information in this document may materially change the coding, format and clinical context of patient data. In addition, data may be omitted in some cases. CLINICAL DECISIONS SHOULD BE BASED ON THE PRIMARY CLINICAL RECORDS. [employer] provides no warranty or guarantee of the accuracy or completeness of information in this document.
[2023-09-08 21:47] LABS: Bacteria 0 SEEN /hpf (None Seen); Mucous, Urine 0 SEEN /hpf (<or=2+); Red Blood Cells-Urine 0 SEEN /hpf (0-5); White Blood Cells 0 SEEN /hpf (0-5)
[2023-09-08 21:51] LABS: Color, Urine Yellow (Yellow); Glucose, Dipstick Normal (Normal); Ketone-Dipstick Negative (Negative); Leukocyte Esterase-Dipstick Negative /ul (Negative); Nitrite-Dipstick Negative (Negative); Occult Blood-Urine Negative /ul (Negative); Protein-Dipstick Negative (Negative); Urine Bilirubin Dipstick Negative (Negative); Urine Clarity Sl. Cloudy (Clear); Urine Urobilinogen Normal (Normal)
[2023-09-08 22:03] LABS: Squamous Epithelial Cells - UA 0-5 SEEN /hpf (0-5)
[2023-09-08 22:31] VITALS: BP 135/78; PULSE 75; RESP 16; TEMP 36.9; O2SAT 99
== END 2023-09-08 22:32 | disposition home or self-care (01) ==
PROVIDERS: Emergency Provider Emergency Medicine; Visit Provider Emergency Medicine
DX: R10.32 Left lower quadrant pain (principal); R11.0 Nausea
CPT/HCPCS: 74177; 80053; 81001; 85025; 96374; 96375; 99283; Q9967; A4216; J2405

== ENCOUNTER 2024-07-29 16:56 | Emergency (ER) | payer SELFPAY ==
[2024-07-29 16:57] VITALS: BP 140/94; PULSE 93; RESP 20; TEMP 36.4; O2SAT 100
--- NOTE | 2024-07-29 16:59 | EKG12_ITS ---
Test Reason : CP Blood Pressure : */* mmHG Vent. Rate : 92 BPM Atrial Rate : 92 BPM P-R Int : 140 ms QRS Dur : 102 ms QT Int : 362 ms P-R-T Axes : 59 68 24 degrees QTcB Int : 447 ms Normal sinus rhythm Cannot rule out Inferior infarct , age undetermined Abnormal ECG Confirmed by FLORENTIN SOLITARIO, RAGINI ([id number]), content editor HILDA MORFIN ([id number]) on 07/30/2024 9:25:38 AM Referred By: Confirmed By: RAGINI LERMA MD
--- NOTE | 2024-07-29 17:16 | EDS_ITS ---
HPI History of Present Illness Chief Complaint: Chest Pain Informant: patient Narrative Narrative: male presents here with his children, he does speak Indonesian. Left- sided chest pain mild sharp in nature after waking at 6 AM this morning. Pain is constant progressive worsening this afternoon. Reports dyspnea left arm weakness. No nausea no diaphoresis. No cardiac history. Denies tobacco history. He drinks alcohol on the weekends. Denies hypertension, diabetes, hyperlipidemia. Intermittent lightheaded symptoms come to go since Monday. No dizzy spinning sensations. Unclear of any family history of MIs at a young age. Denies any cough symptoms. No PE risk factors. Prior Similar Symptoms: No Recent Illness/Hospitalization: No CVD Risk Factors: Negative for Hypertension, Diabetes, Hypercholesterolemia, Family History 1' </=55 or Smoking PE Risk Factors: Negative for Recent Travel/Surgery, Recent Immobilization or Prior DVT or PE PFSH PFSH Medical History Diverticulitis GERD (gastroesophageal reflux disease) Poor historian Estonian speaking patient Home Medications ?Medication ?Instructions ?Recorded ?Last Taken ?Type amoxicillin 875 mg-potassium 1 tab PO BID 7 days #14 tabs 12/10/22 Unknown Rx clavulanate 125 mg tablet ondansetron 4 mg disintegrating 4 mg PO Q8H PRN PRN Nausea #10 tabs 09/08/23 Unknown Rx tablet Allergy/AdvReac Type Severity Reaction Status Date / Time No Known Allergies Allergy Verified 09/08/23 20:01 Social History Smoking Status: Never smoker alcohol intake: current substance use type: does not use ROS ROS ED Constitutional Constitutional ED: Denies chills, fever(s) or sweats ENT ENT ED: Denies sore throat Cardiovascular Cardiovascular: Reports chest pain; Denies leg edema, palpitations or racing heartbeat Respiratory/Chest Respiratory/Chest: Reports dyspnea; Denies cough or dyspnea on exertion Gastrointestinal Gastrointestinal: Denies abdominal pain, diarrhea, nausea or vomiting Genitourinary Genitourinary ED: Denies dysuria, hematuria or urinary frequency Musculoskeletal Musculoskeletal: Denies back pain, extremity pain or neck pain Integumentary Denies rash or wounds Neurologic Neurologic: Reports weakness; Denies headache(s) or paresthesias EXAM Physical Exam Const Vital Signs: 07/29/24 16:57 07/29/24 17:13 07/29/24 17:13 Temperature 97.6 F L Temperature Source Temporal Pulse Rate 93 Respiratory Rate 20 H Respiratory Effort Normal Non-Labored Blood Pressure 140/94 H Blood Pressure Mean 109 Pulse Ox 100 Oxygen Delivery Method Room Air Room Air 07/29/24 17:57 07/29/24 18:00 Temperature Temperature Source Pulse Rate 89 77 Respiratory Rate 13 16 Respiratory Effort Blood Pressure 136/92 H 138/86 H Blood Pressure Mean 106 103 Pulse Ox 96 97 Oxygen Delivery Method Room Air Room Air Positive well nourished and well developed General Appearance ED: well developed and NAD HEENT Reports moist mucous membranes normocephalic and atraumatic Eyes General Eye ED: Yes normal appearance of both eyes Neck full ROM Chest Wall Chest: Negative for tenderness Resp normal respiratory effort and normal air movement Effort and Inspection: symmetric chest movement; Negative for respiratory distress Cardio regular rate, regular rhythm and no murmurs Peripheral Pulses: pulses 2+ throughout GI normal to inspection, nondistended, normoactive bowel sounds and non-tender Palpation: Negative for guarding or rebound tenderness present Extremity normal to inspection General Extremety ED: Negative for edema or tenderness General Extremity: Negative for edema Neuro oriented x3 and no sensory deficits noted Sensorium / Orientation: awake and alert Skin no rashes or lesions noted and no wounds Heart Score History: Slightly/Non-Suspicious ECG: Normal Age: </= 45 years Risk Factors: 1 or 2 Risk Factors Troponin: </= Normal Limit Score: 1 MDM MDM MDM Narrative Medical decision making narrative: Interventions / MDM: Differential diagnosis: Atypical chest pain. Diagnosis considered but do not suspect: Pulmonary embolism however PERC criteria negative. My EKG interpretation: Sinus rate of 92, no ST changes, isolated T wave version lead III nonspecific. Imaging independently reviewed and interpreted by myself: 1 view chest x-ray: No acute process. External documents reviewed: N/A Test considered but not ordered:N/A ED course: Chest pain nonspecific EKG T wave version leads III. This ordered for aspirin. Cardiac workup initiated. 1830: Labs normal troponin less than 3 per hospital algorithm essentially negative for any cardiac concerns. Chest x-ray negative. Symptoms improved on reevaluation. He is given follow-up as an outpatient with strict return precautions. All questions were answered. Re-evaluation: stable Disposition discussed with patient/family/significant other: Patient and family Case discussed with consulting clinician: N/A This note was generated with [employer] dictation software. It may contain incorrect words, spelling, and punctuation that were not noted in checking the note before signing. Lab Data Attestation: I reviewed the patient's lab results. Labs: Laboratory Results - last 24 hr 07/29/24 17:20 WBC 6.5 RBC 4.74 Hgb 14.3 Hct 40.9 MCV 86.3 MCH 30.2 MCHC 35.0 RDW Std Deviation 38.5 RDW Coeff of Kathy 12.3 Plt Count 271 MPV 10.2 Immature Gran % (Auto) 0.800 Neut % (Auto) 58.4 Lymph % (Auto) 33.1 Keith % (Auto) 6.3 Eos % (Auto) 0.6 Baso % (Auto) 0.8 Absolute Neuts (auto) 3.8 Absolute Lymphs (auto) 2.14 Nucleated RBC % 0 Sodium 138 Potassium 3.6 Chloride 105 Carbon Dioxide 26.0 Anion Gap 7 BUN 10 Creatinine 1.07 Estim Creat Clear Calc 84.35 Est GFR (MDRD) Af Amer 98 Est GFR (MDRD) Non-Af 81 BUN/Creatinine Ratio 9.3 L Glucose 118 H Calcium 9.5 Troponin I High Sens < 3 L Radiography Diagnostic Testing: Clinical Impression(s) from Imaging Studies Chest X-Ray 07/29/24 17:45 IMPRESSION: No radiographic evidence of acute cardiopulmonary disease. Electronically Signed: Lisa Hanson MD at 18:22 EST Reading Location ID and State: [address] [place] [address] Tel , Service support , Discharge Plan Triage Chief Complaint: Chest Pain ED Provider: Herman Munoz Dx/Rx/DC Orders Clinical Impression: Chest pain Instructions: ED Chest Pain, Uncertain Cause Prescriptions: No Action amoxicillin-pot clavulanate 875-125 mg tablet 1 tab PO BID 7 Days Qty: 14 0RF ondansetron [ondansetron] 4 mg tablet,disintegrating 4 mg PO Q8H PRN PRN (Reason: Nausea) Qty: 10 0RF Stand Alone Forms: Work / School Excuse Primary Care Provider: Care Physician,No Primary Referrals: Care Physician,No Primary [Primary Care Provider] - Lizbeth Angel [facility], DO [[facility]] - Activity Restrictions/Additional Instructions: Chest x-ray cardiac workup negative. EKG normal. Follow-up with Dr. Campbell. Return if any worsening symptoms. Print Language: Estonian Disposition Disposition: Home, Self Care
[2024-07-29 17:19] VITALS: BMI 33.1
[2024-07-29 17:26] LABS: Absolute Lymphocyte Count 2.14 X10^3/uL (0.83-4.51); Absolute Neutrophil Count 3.8 X10^3/uL (2.0-7.7); Basophil# 0.05 X10^3/uL; Basophil% 0.8 % (0-1); Eosinophil# 0.04 X10^3/uL; Eosinophils% 0.6 % (0-5); Hematocrit 40.9 % (40-54); Hemoglobin 14.3 g/dL (13.0-16.5); Lymphocyte # 2.14 X10^3/ul (0.83-4.51); Lymphocyte % 33.1 % (19-41); Mean Corpuscular Hgb 30.2 pg (27.0-32.0); Mean Corpuscular Volume 86.3 fL (80-94); Mean Platelet Vol. 10.2 fl (6.2-12.0); Monocyte# 0.41 X10^3/uL; Monocyte% 6.3 % (0-10); NRBC Flagged by Analyzer 0 % (0-5); Neutrophil # 3.78 X10^3/uL (2.7-7.7); Neutrophil % 58.4 % (47-70); Platelet Count 271 K/mm3 (150-450); RBC Distribution Width CV 12.3 % (11.6-14.6); RBC Distribution Width SD 38.5 fl (35.1-43.9); Red Blood Count 4.74 M/mm3 (4.6-6.2); White Blood Count 6.5 K/mm3 (4.4-11.0)
--- NOTE | 2024-07-29 17:45 | RAD_ITS ---
EXAM: XR CHEST, 1 VIEW CLINICAL INDICATION: chest pain TECHNIQUE: Frontal view of the chest. COMPARISON: January 19, 2021 FINDINGS: LUNGS AND PLEURAL SPACES: Unremarkable. No consolidation or edema. No pneumothorax. No effusion. HEART: Unremarkable. Cardiac silhouette not enlarged. MEDIASTINUM: Central airways and mediastinal contour are unremarkable. BONES/JOINTS: Unremarkable. No acute fracture. SOFT TISSUES: Unremarkable. RAD/Chest 1 View (Portable) IMPRESSION: No radiographic evidence of acute cardiopulmonary disease. Electronically Signed: Lisa Hanson MD at 18:22 EST ,
[2024-07-29 17:47] LABS: Anion Gap 7 (5-15); BUN 10 mg/dL (7-18); BUN/Creat Ratio 9.3 RATIO (10-20); Calcium,Total 9.5 mg/dL (8.5-10.1); Chloride 105 mmol/L (98-107); Creatinine, Serum 1.07 mg/dL (0.70-1.30); EST Glomerular Filtration Rate 81 mL/min (>60); Est Glom Filt Rate - Afr Amer 98 mL/min (>60); Estimated Creatinine Clearance 84.35 ml/min; Glucose 118 mg/dL (74-106); Potassium 3.6 mmol/L (3.5-5.1); Sodium Level 138 mmol/L (136-145); Troponin-I HS (w/2H Reflex) < 3 pg/mL (3.0-78.0)
[2024-07-29] MEDS: Aspirin 81 MG TAB.CHEW 324 MG PO (17:53)
[2024-07-29 17:57] VITALS: BP 136/92; PULSE 89; RESP 13; O2SAT 96
[2024-07-29 18:00] VITALS: BP 138/86; PULSE 77; RESP 16; O2SAT 97
[2024-07-29 18:55] VITALS: BP 138/86; PULSE 77; RESP 16; TEMP 36.4; O2SAT 97
[2024-07-29 19:21] LABS: Reflex Troponin-HS? (from REC) Y
== END 2024-07-29 18:59 | disposition home or self-care (01) ==
PROVIDERS: Emergency Provider Emergency Medicine; Visit Provider Emergency Medicine
DX: R07.9 Chest pain, unspecified (principal)